=== PATIENT | female | born 1930 | race Caucasian/White ===

== ENCOUNTER 2018-01-28 17:47 | Outpatient (REF) | payer MEDICARE, OTHER | END 2018-01-29 | LOC: M LAB REF 17:47 | DX: D23.11 Other benign neoplasm of skin of right eyelid, including canthus (principal); D23.12 Other benign neoplasm of skin of left eyelid, including canthus; L82.1 Other seborrheic keratosis | CPT/HCPCS: 88304 ==

== ENCOUNTER → 2018-03-12 | Outpatient (REF) | payer MEDICARE, OTHER ==
[2018-03-12 12:55] LABS: FERRITIN 134 NG/ML (8-252); IRON (FE) 65 UG/DL (50-170); PERCENT SATURATION 21.7 % (13.2-45.0); TOTAL IRON BINDING CAPACITY 300 UG/DL (250-450)
[2018-03-12 13:02] LABS: FOLATE 14.4 NG/ML; VITAMIN B12 LEVEL 266 PG/ML
== END ==
LOC: M LAB REF 12:08
DX: D64.9 Anemia, unspecified (principal)
CPT/HCPCS: 82746

== ENCOUNTER 2019-02-22 09:40 | Inpatient (IN) | payer MEDICARE, OTHER ==
[~2019-02-22] VITALS: Ht 154.9 cm; Wt 79.5 kg
[~2019-02-22 09:40] MED LIST: AMLO10TA PO; AMLO25TA PO; ATIV1TAB10 PO; BUSP10TA PO; BUSP1TAB PO; CHLO125TA PO; COLA100C5 PO; HYDR-3910 PO; LIPI10TA PO; OMEP40CA2 PO; PROZ20CA11 PO; RAMI1CAP26 PO; SPIR-10 PO; TRAM50TA2 PO; TYLE325T5 PO; VITA200015 PO; ZIAC10TA PO; hygroton OR
[2019-02-22] MEDS ORDERED: PRED10PA PO (09:52)
[2019-02-22 11:30] LABS: BASO % 0.2 % (0.0-1.0); HEMATOCRIT 33.9 % (36.0-47.0); HEMOGLOBIN 11.2 g/dl (12.0-15.5); MEAN CORPUSCULAR HEMOGLOBIN 29.2 pg (27.0-33.0); MEAN CORPUSCULAR VOLUME 88.5 fl (80.0-96.0); MONO # 0.6 10^3/uL (0.0-0.8); MONO % 4.3 % (0.0-5.0); NEUTROPHILS # 11.2 10^3/uL (1.8-7.7); NEUTROPHILS % 86.7 % (36.0-66.0); PLATELET COUNT, AUTOMATED 340 10^3/uL (150-450); RED BLOOD COUNT 3.83 10^6/uL (4.00-5.40)
[2019-02-22 11:43] LABS: INR 0.99; PROTHROMBIN TIME 13.2 SECONDS (12.1-14.4)
[2019-02-22 11:57] LABS: INFLUENZA A AMPLIFICATION NEGATIVE (NEGATIVE); INFLUENZA B AMPLIFICATION NEGATIVE (NEGATIVE)
[2019-02-22 13:38] LABS: ALBUMIN 3.8 GM/DL (3.2-5.2); ALT/SGPT 17 U/L (12-78); BILIRUBIN,DIRECT < 0.1 MG/DL (0.0-0.2); BILIRUBIN,TOTAL 0.3 MG/DL (0.2-1.0); BLOOD UREA NITROGEN 29 MG/DL (7-18); CALCIUM LEVEL 9.4 MG/DL (8.8-10.2); CARBON DIOXIDE LEVEL 24 MEQ/L (21-32); CHLORIDE LEVEL 109 MEQ/L (98-107); CPK CREATINE PHOSPHOKINASE 48 U/L (26-192); CREATININE FOR GFR 1.17 MG/DL (0.55-1.30); GLOMERULAR FILTRATION RATE 46.7 (>32); GLUCOSE, FASTING 102 MG/DL (70-100); MB/CK RELATIVE INDEX 2.08 (< OR =4); NT-PRO BNP 495 PG/ML (<450); POTASSIUM SERUM 4.9 MEQ/L (3.5-5.1); SODIUM LEVEL 139 MEQ/L (136-145); THYROXINE (T4) 8.3 UG/DL (4.5-12.0); TOTAL PROTEIN 7.2 GM/DL (6.4-8.2); TROPONIN I < 0.02 NG/ML (< 0.10)
[2019-02-22] MEDS ORDERED: ISOVUE-370 76% 100ML VIAL (Q9967) As Ordered ONE (13:50)
[2019-02-22] MEDS ORDERED: LIDO1PAD TD (16:08)
[2019-02-22] MEDS ORDERED: DOCU100C17 PO (16:08)
[2019-02-22] MEDS ORDERED: ATOR1TAB21 PO (16:08)
[2019-02-22] MEDS ORDERED: PRED10TA2 PO (16:08)
[2019-02-22] MEDS ORDERED: BUSP10TA PO (16:08)
[2019-02-22] MEDS ORDERED: FLUO20CA8 PO (16:08)
[2019-02-22] MEDS ORDERED: VITA-145 PO (16:08)
[2019-02-22] MEDS ORDERED: MIRA3350 PO (16:08)
[2019-02-22] MEDS ORDERED: CHLO25TA PO (16:08)
[2019-02-22] MEDS ORDERED: NON-325T5 PO (16:10)
[2019-02-22] MEDS ORDERED: ACETAMINOPHEN 325 MG TAB PO PRN (16:15)
[2019-02-22] MEDS ORDERED: MIRALAX *UNIT DOSE* 17GM PACKET PO PRN (16:15)
--- NOTE | 2019-02-22 16:26 | HPEPDOC ---
[facility] Medical History & Physical Date of Admission Feb 22, 2019 History and Physical CHIEF COMPLAINT: SHORTNESS OF BREATH HISTORY OF PRESENT ILLNESS: 88 yo female presents for several day history of worsening shortness of breath, bilateral leg pain, dizziness and difficulty with walking. She did seek medical attention, and was prescribed steroid therapy with x-rays of her legs which she states were negative for fractures. She states she typically is short of breath, which has been attributed to anxiety. However her shortness of breath was much worse over the past week. She states she typically is somewhat active. She denies chest pain or long trips. States she does also follow with a director of laboratory operations for her shortness of breath, and had a cardiac cath two years ago which was negative. Her last colonoscopy was 2-3 years ago, and was normal as per patient. Denies smoking history, states her father was a heavy smoker who she grew up with. PAST MEDICAL HISTORY: 1. HTN 2. DLP 3. Anxiety PAST SURGICAL HISTORY: Patient denies. ALLERGIES: Please see below. REVIEW OF SYSTEMS: Negative except as per HPI. HOME MEDICATIONS: Please see below. PHYSICAL EXAMINATION: VSS General: elderly, lying comfortably in bed, family at bedside HEENT: NC/AT, EOMI, PERRL Lungs: CTA B/L Heart: +S1S2, RRR Abd: soft, NT, +BS Ext: trace peripheral edema, + b/l calf tenderness LABORATORY DATA: See below. MICROBIOLOGY: Please see below. ASSESSMENT: 88 yo female for multiple pulmonary emboli. #PE - start xarelto - takes same medication - coagulopathy w/u - up to date with colonoscopy as per patient - echocardiogram #SOB - possibly secondary to PE complicated with anxiety #anxiety - continue home regimen - buspar, prozac, ativan as needed #HTN - continue home regimen - norvasc, chlorthalidone, aldactone #DLP - lipitor #DVT prophylaxis - as per above - Xarelto Vital Signs Vital Signs Date Time Temp Pulse Resp B/P (MAP) Pulse Ox O2 Delivery O2 Flow Rate FiO2 02/22/19 14:47 98.2 67 18 149/65 (93) 100 Room Air Laboratory Data Labs 24H Laboratory Tests 2 02/22/19 11:19: Immature Granulocyte % (Auto) 0.8, White Blood Count 13.0H, Red Blood Count 3.83L, Hemoglobin 11.2L, Hematocrit 33.9L, Mean Corpuscular Volume 88.5, Mean Corpuscular Hemoglobin 29.2, Mean Corpuscular Hemoglobin Concent 33.0, Red Cell Distribution Width 13.1, Platelet Count 340, Neutrophils (%) (Auto) 86.7H, Lymphocytes (%) (Auto) 8.0L, Monocytes (%) (Auto) 4.3, Eosinophils (%) (Auto) 0.0, Basophils (%) (Auto) 0.2, Neutrophils # (Auto) 11.2H, Lymphocytes # (Auto) 1.0L, Monocytes # (Auto) 0.6, Eosinophils # (Auto) 0.0, Basophils # (Auto) 0.0, Nucleated Red Blood Cells % (auto) 0.0, Prothrombin Time 13.2, Prothromb Time International Ratio 0.99, Lactic Acid Level 1.2, Influenza Type A (RT-PCR) NEGATIVE, Influenza Type B (RT-PCR) NEGATIVE 02/22/19 12:53: Anion Gap 6L, Glomerular Filtration Rate 46.7, Calcium Level 9.4, Aspartate Amino Transf (AST/SGOT) 9, Alanine Aminotransferase (ALT/SGPT) 17, Alkaline Phosphatase 53, Total Bilirubin 0.3, Direct Bilirubin < 0.1, Total Creatine Kinase 48, Creatine Kinase MB 1.0, Creatine Kinase MB Relative Index 2.08, Troponin I < 0.02, VO-Frd-G-Type Natriuretic Peptide 495H, Total Protein 7.2, Albumin 3.8, Albumin/Globulin Ratio 1.12, Thyroid Stimulating Hormone (TSH) 1.070, Thyroxine (T4) 8.3 CBC/BMP Laboratory Tests 02/22/19 11:19 Red Blood Count 3.83 L, Mean Corpuscular Volume 88.5, Mean Corpuscular Hemoglobin 29.2, Mean Corpuscular Hemoglobin Concent 33.0, Red Cell Distribution Width 13.1, Neutrophils (%) (Auto) 86.7 H, Lymphocytes (%) (Auto) 8.0 L, Monocytes (%) (Auto) 4.3, Eosinophils (%) (Auto) 0.0, Basophils (%) (Auto) 0.2, Neutrophils # (Auto) 11.2 H, Lymphocytes # (Auto) 1.0 L, Monocytes # (Auto) 0.6, Eosinophils # (Auto) 0.0, Basophils # (Auto) 0.0 02/22/19 12:53 Microbiology Microbiology 02/22/19 Blood Culture, Received Pending 02/22/19 Blood Culture, Received Pending Home Medications Scheduled Amlodipine Besylate (Norvasc) 10 Mg Tab, 10 MG PO DAILY Atorvastatin Calcium (Atorvastatin Calcium) 20 Mg Tablet, 10 MG PO QHS Buspirone HCl (Buspirone HCl) 10 Mg Tablet, 20 MG PO BID Chlorthalidone (Chlorthalidone) 25 Mg Tablet, 25 MG PO DAILY Cholecalciferol (Vitamin D3) (Vitamin D3) 1,000 Unit Tablet, 2,000 UNIT PO DAILY Docusate Sodium (Docusate Sodium) 100 Mg Capsule, 100 MG PO BID Fluoxetine Hcl (Fluoxetine HCl) 20 Mg Capsule, 20 MG PO BID Omeprazole (Omeprazole) 40 Mg Cap, 40 MG PO DAILY Prednisone (Prednisone) 10 Mg Tablet, 10 MG PO TID STARTED 02/21/19 X 4 DAYS TOTAL Spironolactone (Spironolactone) 25 Mg Tab, 25 MG PO DAILY Scheduled PRN Acetaminophen (Acetaminophen) 325 Mg Tablet, 650 MG PO Q4H PRN for PAIN Lidocaine (Lidocaine) 1 Each Adh..patch, 5 % TD DAILY PRN for PAIN APPLY TO NECK Lorazepam (Ativan) 0.5 Mg Tab, 0.5 MG PO TID PRN for ANXIETY Polyethylene Glycol 3350 (Miralax) 119 Gm Powder, 17 GM PO DAILY PRN for CONSTIPATION Allergies Coded Allergies: Penicillins (Verified Allergy, Intermediate, SWELLING, 02/22/19) SU HONEYCUTT MD Feb 22, 2019 16:26
[2019-02-22] MEDS: predniSONE 10 MG TAB PO SCH ×2 (16:55→21:31)
[2019-02-22] MEDS: RIVAROXABAN 15 MG TAB (XARELTO) PO SCH (18:01)
[2019-02-22] MEDS: LORazepam 0.5 MG TAB PO PRN (18:29)
[2019-02-22] MEDS: FLUoxetine 20 MG CAP PO SCH (21:31)
[2019-02-22] MEDS: ATORVASTATIN 10 MG TAB PO SCH (21:31)
[2019-02-22] MEDS: busPIRone 10 MG TAB PO SCH (21:32)
[2019-02-23] MEDS: LORazepam 0.5 MG TAB PO PRN ×2 (02:36→20:39)
[2019-02-23 07:23] LABS: HEMOGLOBIN 10.2 g/dl (12.0-15.5); MEAN CORPUSCULAR HEMOGLOBIN 29.5 pg (27.0-33.0); MEAN CORPUSCULAR HGB CONC 32.9 g/dl (32.0-36.5); MEAN CORPUSCULAR VOLUME 89.6 fl (80.0-96.0); PLATELET COUNT, AUTOMATED 276 10^3/uL (150-450); RED BLOOD COUNT 3.46 10^6/uL (4.00-5.40); WHITE BLOOD COUNT 9.3 10^3/uL (4.0-10.0)
[2019-02-23 07:35] LABS: CALCIUM LEVEL 9.2 MG/DL (8.8-10.2); CREATININE FOR GFR 1.23 MG/DL (0.55-1.30); GLOMERULAR FILTRATION RATE 44.1 (>32); POTASSIUM SERUM 5.1 MEQ/L (3.5-5.1)
[2019-02-23] MEDS: busPIRone 10 MG TAB PO SCH ×2 (08:16→21:33)
[2019-02-23] MEDS: predniSONE 10 MG TAB PO SCH (08:16)
[2019-02-23] MEDS: OMEPRAZOLE 20 MG CAP PO SCH (08:16)
[2019-02-23] MEDS: SPIRONOLACTONE 25 MG TAB PO SCH (08:16)
[2019-02-23] MEDS: VITAMIN D 1,000 INTERNATIONAL UNITS TABLET PO SCH (08:17)
[2019-02-23] MEDS: amLODIPine 10 MG TAB PO SCH (08:17)
[2019-02-23] MEDS: FLUoxetine 20 MG CAP PO SCH ×2 (08:17→21:33)
[2019-02-23] MEDS: CHLORTHALIDONE 25 MG TAB PO SCH (08:17)
[2019-02-23] MEDS: RIVAROXABAN 15 MG TAB (XARELTO) PO SCH ×2 (08:30→18:04)
--- NOTE | 2019-02-23 09:12 | REP ---
Bilateral lower extremity deep vein duplex ultrasound: The deep veins demonstrate normal compression, normal Doppler color flow and normal Doppler waveforms with respiration and augmentation from the popliteal veins to the common femoral veins on the right and left. 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 Impression: There is no deep vein thrombus the right lower extremity or left lower extremity. There are bilateral popliteal fossa Zhao's cysts . Electronically Signed by Albin Aviles MD 02/22/2019 11:25 A
--- NOTE | 2019-02-23 09:12 | REP ---
PA and lateral chest: Comparison is 01/28/2016. The lung serna are clear. The cardiac size is normal. The sonia, mediastinum, and skeletal structures are unremarkable except for kyphosis, unchanged . Impression: Negative PA and lateral chest. Electronically Signed by Albin Aviles MD 02/22/2019 11:22 A
--- NOTE | 2019-02-23 09:17 | REP ---
CT of the chest with IV contrast, CT pulmonary angiography protocol: Comparisons are 02/19/2017 and 03/14/2016 . There are no emboli in the pulmonary trunk or central pulmonary arteries. The pulmonary trunk measures 3.3 cm in diameter. This is compatible with pulmonary hypertension in the appropriate clinical setting. There are emboli in the pulmonary artery to the anterior segment of the right lower lobe. No other pulmonary emboli are identified. There are no infiltrates. There are no pleural effusions. There are multiple small lung nodules bilaterally, unchanged from 08/19/2016, likely granulomas. There is no mediastinal, hilar or axillary lymph node enlargement. Thoracic aorta is unremarkable except for calcified atheroma. Cardiac size is normal. There is no pericardial effusion. The visualized upper abdominal contents are unremarkable. Impression: There are emboli in the right lower lobe anterior segment pulmonary artery branch. There are no other pulmonary emboli. There are stable small lung nodules as described, likely granulomas. Electronically Signed by Albin Aviles MD 02/22/2019 02:55 P
--- NOTE | 2019-02-23 12:54 | IPNPDOC ---
Text Note Date of Service The patient was seen on 02/23/19. NOTE Subjective: Patient seen and examined at bedside. Still complains of shortness of breath and light-headedness. Denies chest pain, headaches, N/V/D. Calf pain improved. Objective: VSS General: elderly, lying comfortably in bed, at bedside HEENT: NC/AT, EOMI, PERRL Lungs: CTA B/L Heart: +S1S2, RRR Abd: soft, NT, +BS Ext: trace peripheral edema, ASSESSMENT: 88 yo female for multiple pulmonary emboli. #PE - started xarelto - takes same medication - coagulopathy w/u - up to date with colonoscopy as per patient - echocardiogram #SOB - possibly secondary to PE complicated with anxiety #anxiety - continue home regimen - buspar, prozac, ativan as needed #HTN - continue home regimen - norvasc, chlorthalidone, aldactone #DLP - lipitor #DVT prophylaxis - as per above - Xarelto Dispo: Pending PT eval, PFS possible home care, echocardiogram VS,Mark Anthony, I+O VS, Mark Anthony, I+O Laboratory Tests 02/22/19 12:53 02/23/19 06:57 Red Blood Count 3.46 L, Mean Corpuscular Volume 89.6, Mean Corpuscular Hemoglobin 29.5, Mean Corpuscular Hemoglobin Concent 32.9, Red Cell Distribution Width 13.4, Calcium Level 9.2 Vital Signs Date Time Temp Pulse Resp B/P (MAP) Pulse Ox O2 Delivery O2 Flow Rate FiO2 02/23/19 10:57 96.7 63 20 164/72 (102) 97 Room Air SU HONEYCUTT MD Feb 23, 2019 12:54
--- NOTE | 2019-02-23 20:40 | ECGEPIP ---
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
[2019-02-23] MEDS ORDERED: predniSONE 10 MG TAB PO SCH (21:00)
[2019-02-23] MEDS: ATORVASTATIN 10 MG TAB PO SCH (21:33)
[2019-02-23 22:15] VITALS: BP 142/72
[2019-02-24 05:55] VITALS: O2SAT 98
[2019-02-24 06:00] VITALS: BP 140/70
--- NOTE | 2019-02-24 06:24 | ECHO ---
DATE OF PROCEDURE: 02/23/2019 AGE: 88 GENDER: Female HEIGHT: 61 inches WEIGHT: 175 pounds BODY SURFACE AREA: 1.78 meters squared INPATIENT: Currently in the emergency room. REFERRING PHYSICIAN: Dr. Aidan Ng INDICATION: Dyspnea. Pulmonary embolism. MEASUREMENTS 2-D Measurements: RV: 3.8 cm LV: 4.4 cm Septum: 1.0 cm Posterior wall: 1.0 cm Aortic root: 3.0 cm Proximal ascending aorta: 3.8 cm LA: 3.8 cm LVEF: 75%. Doppler Measurements: AV: 2.05 m/s LVOT: 1.13 m/s LVOT diameter: 2.0 cm Mean AV systolic gradient: 9 mmHg MV - E 124 A 159 EA ratio 0.8 Mean MV diastolic gradient: 3 mmHg PV: 1.0 m/s Pulmonary artery acceleration time: 130 ms RVSP: 37 mmHg IVC: 1.9 cm COMMENTS: Normal sinus rhythm without intraventricular conduction disturbance. Somewhat technically challenging study in light of the patient's body habitus, but diagnostically useful information was still obtained. M-mode and two-dimensional echocardiography was performed with pulsed, continuous wave, color flow and tissue Doppler studies. Normal left ventricular size and wall thickness with hyperkinetic wall motion. Borderline left atrial enlargement. Normal right heart chamber sizes and motion with Doppler evidence of mild pulmonary hypertension. Normal IVC size and collapse against an elevated central venous pressure. Aortic valvular sclerosis without stenosis or insufficiency. Moderately severe mitral annular calcification with slightly elevated mean gradient suggestive a borderline mitral stenosis. Trace mitral insufficiency. Normal appearing tricuspid valve with mild insufficiency. No apparent intracardiac mass or pericardial effusion. MTDD
[2019-02-24 07:08] LABS: HEMATOCRIT 34.6 % (36.0-47.0); HEMOGLOBIN 11.4 g/dl (12.0-15.5); MEAN CORPUSCULAR HEMOGLOBIN 29.8 pg (27.0-33.0); MEAN CORPUSCULAR HGB CONC 32.9 g/dl (32.0-36.5); MEAN CORPUSCULAR VOLUME 90.3 fl (80.0-96.0); PLATELET COUNT, AUTOMATED 297 10^3/uL (150-450); RED BLOOD COUNT 3.83 10^6/uL (4.00-5.40)
[2019-02-24 07:27] LABS: CALCIUM LEVEL 9.2 MG/DL (8.8-10.2); CREATININE FOR GFR 1.4 MG/DL (0.55-1.30); POTASSIUM SERUM 4.5 MEQ/L (3.5-5.1)
[2019-02-24] MEDS: RIVAROXABAN 15 MG TAB (XARELTO) PO SCH ×2 (08:00→17:47)
[2019-02-24] MEDS: busPIRone 10 MG TAB PO SCH ×2 (09:48→21:42)
[2019-02-24] MEDS: LORazepam 0.5 MG TAB PO PRN ×2 (09:48→17:46)
[2019-02-24] MEDS: FLUoxetine 20 MG CAP PO SCH ×2 (09:49→21:42)
[2019-02-24] MEDS: VITAMIN D 1,000 INTERNATIONAL UNITS TABLET PO SCH (09:49)
[2019-02-24] MEDS: OMEPRAZOLE 20 MG CAP PO SCH (09:49)
[2019-02-24] MEDS: SPIRONOLACTONE 25 MG TAB PO SCH (09:49)
[2019-02-24] MEDS: CHLORTHALIDONE 25 MG TAB PO SCH (09:49)
[2019-02-24] MEDS: amLODIPine 10 MG TAB PO SCH (09:49)
--- NOTE | 2019-02-24 12:28 | IPNPDOC ---
Text Note Date of Service The patient was seen on 02/24/19. NOTE Subjective: Patient seen and examined at bedside. Still complains of shortness of light- headedness. Denies chest pain, headaches, N/V/D. Calf pain improved. Objective: VSS General: elderly, lying comfortably in bed, family at bedside HEENT: NC/AT, EOMI, PERRL Lungs: CTA B/L Heart: +S1S2, RRR Abd: soft, NT, +BS Ext: trace peripheral edema, ASSESSMENT: 88 yo female for multiple pulmonary emboli. #PE - started xarelto - takes same medication - coagulopathy w/u - up to date with colonoscopy as per patient - echocardiogram #SOB - possibly secondary to PE complicated with anxiety #anxiety - continue home regimen - buspar, prozac, ativan as needed #HTN - continue home regimen - norvasc, chlorthalidone, aldactone #DLP - lipitor #elevated creatinine - check UA today - continue to follow #DVT prophylaxis - as per above - Xarelto Dispo: Pending PT clearance, PFS possible home care, follow creatinine/UA VS,Fishbone, I+O VS, Fishbone, I+O Laboratory Tests 02/24/19 06:40 Red Blood Count 3.83 L, Mean Corpuscular Volume 90.3, Mean Corpuscular Hemoglobin 29.8, Mean Corpuscular Hemoglobin Concent 32.9, Red Cell Distribution Width 13.3, Calcium Level 9.2 Vital Signs Date Time Temp Pulse Resp B/P (MAP) Pulse Ox O2 Delivery O2 Flow Rate FiO2 02/24/19 09:49 68 143/65 02/24/19 06:00 97.8 18 98 02/24/19 05:55 Room Air I&O- Last 24 Hours up to 6 AM 02/24/19 06:00 Intake Total 0 ml Output Total 800 ml Balance -800 ml SU HONEYCUTT MD Feb 24, 2019 12:28
[2019-02-24 14:00] VITALS: BP 145/66
[2019-02-24] MEDS: ATORVASTATIN 10 MG TAB PO SCH (21:42)
[2019-02-24 22:00] VITALS: BP 162/58
[2019-02-25 04:38] VITALS: O2SAT 97
[2019-02-25 06:00] VITALS: BP 160/62
[2019-02-25 06:34] LABS: HEMATOCRIT 34.1 % (36.0-47.0); HEMOGLOBIN 11.1 g/dl (12.0-15.5); MEAN CORPUSCULAR HGB CONC 32.6 g/dl (32.0-36.5); PLATELET COUNT, AUTOMATED 307 10^3/uL (150-450); RED BLOOD COUNT 3.83 10^6/uL (4.00-5.40); WHITE BLOOD COUNT 8.6 10^3/uL (4.0-10.0)
[2019-02-25 06:55] LABS: CALCIUM LEVEL 9.2 MG/DL (8.8-10.2); CREATININE FOR GFR 1.36 MG/DL (0.55-1.30); GLOMERULAR FILTRATION RATE 39.2 (>32); POTASSIUM SERUM 4.5 MEQ/L (3.5-5.1)
[2019-02-25] MEDS: SPIRONOLACTONE 25 MG TAB PO SCH (08:42)
[2019-02-25] MEDS: RIVAROXABAN 15 MG TAB (XARELTO) PO SCH ×2 (08:43→18:32)
[2019-02-25] MEDS: FLUoxetine 20 MG CAP PO SCH ×2 (08:43→20:39)
[2019-02-25] MEDS: OMEPRAZOLE 20 MG CAP PO SCH (08:43)
[2019-02-25] MEDS: busPIRone 10 MG TAB PO SCH ×2 (08:43→20:38)
[2019-02-25] MEDS: VITAMIN D 1,000 INTERNATIONAL UNITS TABLET PO SCH (08:43)
[2019-02-25] MEDS: amLODIPine 10 MG TAB PO SCH (08:47)
[2019-02-25] MEDS: LORazepam 0.5 MG TAB PO PRN ×2 (08:49→20:43)
[2019-02-25] MEDS ORDERED: NS 500 ML IV ONE (09:15)
[2019-02-25] MEDS ORDERED: XARE20TA PO (10:06)
[2019-02-25] MEDS ORDERED: XARE15TA PO (10:06)
[2019-02-25 10:43] LABS: DRVV SCREEN 86.1 SEC
[2019-02-25 10:49] LABS: PTT LUPUS TYPE ANTICOAG SCREEN 2.1 (0-1.2)
[2019-02-25 10:56] LABS: DRVV CONFIRM 54.4 SEC; LUPUS CONFIRM RATIO 1.5
[2019-02-25 11:00] LABS: NORMALIZED RATIO 1.4 (0.00-1.20)
[2019-02-25 14:00] VITALS: BP 142/62
[2019-02-25 14:17] LABS: ANTINUCLEAR ANTIBODIES DIRECT Negative (Negative)
--- NOTE | 2019-02-25 15:58 | IPNPDOC ---
Text Note Date of Service The patient was seen on 02/25/19. NOTE Subjective: Patient is an 88-year-old female with a past medical history of hypertension, dyslipidemia and anxiety who presented to the ER with complaints of shortness of breath. . She had noted associated dizziness and difficulty with walking. Patient does follow with Dr. Machuca for pulmonary nodules. The emergency room, patient was found to have a pulmonary embolism and was admitted to the hospital service for further evaluation and treatment. Patient was seen and examined at the bedside. , Currently patient denies any chest pain, short of breath or palpitations. Denies any nausea, vomiting, abdominal pain, constipation, diarrhea or any urinary discomfort. Objective: Vitals (See below) General: Lying in bed, no acute distress, comfortable, AAOx3 HEENT: NC, AT CVS: RRR, +S1S2 Lungs: Fair air entry b/l, auscultation without any wheezing, rales or rhonchi Abdomen: Soft, ND, NT Extremities: - Edema, - Calf tenderness Assessment and plan: Shortness of breath - likely 2/2 pulmonary embolism - Presented to the ER with complaint of shortness of breath; clinically has had significant resolution - Remains hemodynamically stable - Will have outpatient follow-up for coagulopathy workup - Patient's screening history is up-to-date; Up to date colonoscopy - c/w Xarelto; prescription sent to pharmacy for verification Pulmonary nodules - Patient follows with Dr. Machuca; will ensure f/u within 7 days from discharge Elevation of Cr - Will hold Spironolactone and Chlorthalidone - Will start aylin IV hydration Anxiety - c/w Buspirone, Fluoxetine, Lorazepam HTN - BP well controlled - Will hold Spironolactone and Chlorthalidone - c/w Amlodipine DLP - c/w Atorvastatin DVT prophylaxis - on full anticoagulation with Xarelto Disposition: - Awaiting discharge tomorrow when renal function improves VSMark Anthony, I+O VSMark Anthony, I+O Laboratory Tests 02/25/19 06:06 Red Blood Count 3.83 L, Mean Corpuscular Volume 89.0, Mean Corpuscular Hemoglobin 29.0, Mean Corpuscular Hemoglobin Concent 32.6, Red Cell Distribution Width 13.4, Calcium Level 9.2 Vital Signs Date Time Temp Pulse Resp B/P (MAP) Pulse Ox O2 Delivery O2 Flow Rate FiO2 02/25/19 14:00 98.9 75 18 142/62 (88) 98 02/25/19 04:38 Room Air I&O- Last 24 Hours up to 6 AM 02/25/19 05:59 Intake Total 840 ml Output Total 1250 ml Balance -410 ml MODE CASTANEDA MD Feb 25, 2019 15:57
[2019-02-25 20:00] VITALS: O2SAT 99
[2019-02-25] MEDS: ATORVASTATIN 10 MG TAB PO SCH (20:39)
[2019-02-25 22:00] VITALS: BP 146/64
[2019-02-26 00:06] LABS: CARDIOLIPIN IGA ANTIBODY <9 APL U/mL (0-11); CARDIOLIPIN IGG ANTIBODY <9 GPL U/mL (0-14); CARDIOLIPIN IGM ANTIBODY 15 MPL U/mL (0-12); HOMOCYST(E)INE SERUM 17.4 umol/L (0.0-15.0)
[2019-02-26 02:00] VITALS: O2SAT 96
[2019-02-26 06:00] VITALS: BP 153/67
[2019-02-26 06:06] LABS: HEMOGLOBIN 10.5 g/dl (12.0-15.5); MEAN CORPUSCULAR HEMOGLOBIN 29.2 pg (27.0-33.0); MEAN CORPUSCULAR HGB CONC 32.8 g/dl (32.0-36.5); MEAN CORPUSCULAR VOLUME 89.1 fl (80.0-96.0); PLATELET COUNT, AUTOMATED 272 10^3/uL (150-450); RED BLOOD COUNT 3.59 10^6/uL (4.00-5.40); WHITE BLOOD COUNT 8.1 10^3/uL (4.0-10.0)
[2019-02-26 06:22] LABS: CALCIUM LEVEL 8.4 MG/DL (8.8-10.2); CREATININE FOR GFR 1.16 MG/DL (0.55-1.30); GLOMERULAR FILTRATION RATE 47.2 (>32); POTASSIUM SERUM 4.3 MEQ/L (3.5-5.1)
[2019-02-26 09:10] VITALS: BP 153/67
[2019-02-26] MEDS: VITAMIN D 1,000 INTERNATIONAL UNITS TABLET PO SCH (09:10)
[2019-02-26] MEDS: amLODIPine 10 MG TAB PO SCH (09:10)
[2019-02-26] MEDS: FLUoxetine 20 MG CAP PO SCH (09:10)
[2019-02-26] MEDS: RIVAROXABAN 15 MG TAB (XARELTO) PO SCH (09:10)
[2019-02-26] MEDS: OMEPRAZOLE 20 MG CAP PO SCH (09:10)
[2019-02-26] MEDS: busPIRone 10 MG TAB PO SCH (09:10)
--- NOTE | 2019-02-26 11:08 | DS.PDOC ---
Discharge Summary General Date of Admission Feb 22, 2019 at 15:44 Date of Discharge 02/26/2019 Discharge Summary PROCEDURES PERFORMED DURING STAY: [None]. ADMITTING DIAGNOSES / DISCHARGE DIAGNOSES: Shortness of breath - likely 2/2 pulmonary embolism Pulmonary nodules s/p Elevation of Cr Anxiety HTN DLP DVT prophylaxis COMPLICATIONS/CHIEF COMPLAINT: Shortness of breath HISTORY OF PRESENT ILLNESS: Patient is an 88-year-old female with a past medical history of hypertension, dyslipidemia and anxiety who presented to the ER with complaints of shortness of breath. . She had noted associated dizziness and difficulty with walking. Patient does follow with Dr. Machuca for pulmonary nodules. The emergency room, patient was found to have a pulmonary embolism and was admitted to the hospital service for further evaluation and treatment. HOSPITAL COURSE: Shortness of breath - likely 2/2 pulmonary embolism - Presented to the ER with complaint of shortness of breath; clinically has had significant resolution - Remains hemodynamically stable - Will have outpatient follow-up for coagulopathy workup - Patient's screening history is up-to-date; Up to date colonoscopy - c/w Xarelto; verified that coverage will be provided by insurance Pulmonary nodules - Patient follows with Dr. Machuca; will ensure f/u within 7 days from discharge s/p Elevation of Cr - Will hold Spironolactone and Chlorthalidone - s/p aylin IV hydration Anxiety - c/w Buspirone, Fluoxetine, Lorazepam HTN - BP well controlled - Will resume Spironolactone and Chlorthalidone on discharge - c/w Amlodipine DLP - c/w Atorvastatin DVT prophylaxis - on full anticoagulation with Xarelto DISCHARGE MEDICATIONS: Please see below. ALLERGIES: Please see below. PHYSICAL EXAMINATION ON DISCHARGE: Vitals (See below) General: Lying in bed, no acute distress, comfortable, AAOx3 HEENT: NC, AT CVS: RRR, +S1S2 Lungs: Fair air entry b/l, auscultation without any wheezing, rales or rhonchi Abdomen: Soft, non-distended without tenderness Extremities: No evidence of edema, - Calf tenderness LABORATORY DATA: Please see below. ACTIVITY: [As tolerated]. DISCHARGE PLAN: Follow up with Dr. Donal Wesley and Dr. Machuca within 7 days. Remain compliant with treatment plan and medications Return to the ER if you experience any problems DISPOSITION: Home, Self-Care. DISCHARGE CONDITION: [Stable]. TIME SPENT ON DISCHARGE: Greater than [35] minutes. Vital Signs/I&Os Vital Signs Date Time Temp Pulse Resp B/P (MAP) Pulse Ox O2 Delivery O2 Flow Rate FiO2 02/26/19 09:10 78 153/67 02/26/19 06:00 98.7 18 98 02/26/19 02:00 Room Air I&O- Last 24 Hours up to 6 AM 02/26/19 06:00 Intake Total 1620 ml Output Total 1250 ml Balance 370 ml Laboratory Data Labs 24H Laboratory Tests 2 02/26/19 05:40: Nucleated Red Blood Cells % (auto) 0.0, Anion Gap 7L, Glomerular Filtration Rate 47.2, Blood Urea Nitrogen 35H, Creatinine 1.16, Sodium Level 140, Potassium Level 4.3, Chloride Level 109H, Carbon Dioxide Level 24, Calcium Level 8.4L CBC/BMP Laboratory Tests 02/26/19 05:40 Red Blood Count 3.59 L, Mean Corpuscular Volume 89.1, Mean Corpuscular Hemoglobin 29.2, Mean Corpuscular Hemoglobin Concent 32.8, Red Cell Distribution Width 13.2, Calcium Level 8.4 L Microbiology Microbiology 02/22/19 Blood Culture - Preliminary, Resulted No Growth after 72 hours. All specime... 02/22/19 Blood Culture - Preliminary, Resulted No Growth after 72 hours. All specime... 02/24/19 Urine Culture - Preliminary, Resulted Strep Agalactiae Group B Discharge Medications Scheduled Amlodipine Besylate (Norvasc) 10 Mg Tab, 10 MG PO DAILY, (Reported) Atorvastatin Calcium (Atorvastatin Calcium) 20 Mg Tablet, 10 MG PO QHS, (Reported) Buspirone HCl (Buspirone HCl) 10 Mg Tablet, 20 MG PO BID, (Reported) Chlorthalidone (Chlorthalidone) 25 Mg Tablet, 25 MG PO DAILY, (Reported) Cholecalciferol (Vitamin D3) (Vitamin D3) 1,000 Unit Tablet, 2,000 UNIT PO DAILY, (Reported) Docusate Sodium (Docusate Sodium) 100 Mg Capsule, 100 MG PO BID, (Reported) Fluoxetine Hcl (Fluoxetine HCl) 20 Mg Capsule, 20 MG PO BID, (Reported) Omeprazole (Omeprazole) 40 Mg Cap, 40 MG PO DAILY, (Reported) Rivaroxaban (Xarelto) 15 Mg Tablet, 15 MG PO BID Rivaroxaban (Xarelto) 20 Mg Tablet, 20 MG PO DAILY with food Spironolactone (Spironolactone) 25 Mg Tab, 25 MG PO DAILY, (Reported) Scheduled PRN Acetaminophen (Acetaminophen) 325 Mg Tablet, 650 MG PO Q4H PRN for PAIN, (Reported) Lidocaine (Lidocaine) 1 Each Adh..patch, 5 % TD DAILY PRN for PAIN, (Reported) APPLY TO NECK Lorazepam (Ativan) 0.5 Mg Tab, 0.5 MG PO TID PRN for ANXIETY, (Reported) Polyethylene Glycol 3350 (Miralax) 119 Gm Powder, 17 GM PO DAILY PRN for CONSTIPATION, (Reported) Allergies Coded Allergies: Penicillins (Verified Allergy, Intermediate, SWELLING, 02/22/19) MODE CASTANEDA MD Feb 26, 2019 11:08
[2019-02-26 14:11] LABS: ANTI THROMBIN 3 ANTIGEN IMMUNO 123 % (72-124); ANTI THROMBIN 3 FUNCT ACTIVITY 135 % (75-135); PROTEIN C ANTIGEN 174 % (60-150); PROTEIN S ANTIGEN FREE 127 % (57-157); PROTEIN S ANTIGEN TOTAL 136 % (60-150)
[2019-02-27 14:12] LABS: HEXAGONAL PHASE PHOSPHOLIPID 4 sec (0-11)
== END 2019-02-26 09:48 | disposition home or self-care (01) | DRG 176 ==
LOC: M ED 09:40 → M ED INP 15:44 → M MSPAV 02-23 22:14
PROVIDERS: ADMIT Internal Medicine; ATTEND Internal Medicine
DX: I26.99 Other pulmonary embolism without acute cor pulmonale (principal); F41.9 Anxiety disorder, unspecified; I10 Essential (primary) hypertension; E78.5 Hyperlipidemia, unspecified; R91.8 Other nonspecific abnormal finding of lung field; Z79.899 Other long term (current) drug therapy; Z88.0 Allergy status to penicillin

== ENCOUNTER 2019-04-08 08:04 | Emergency (ER) | payer MEDICARE, OTHER ==
[~2019-04-08] VITALS: Ht 154.9 cm; Wt 78.5 kg
[~2019-04-08 08:04] MED LIST changes: +ATOR1TAB21 PO; +CHLO25TA PO; +DOCU100C17 PO; +FLUO20CA8 PO; +LIDO1PAD TD; +MIRA3350 PO; +NON-325T5 PO; +PRED10PA PO; +PRED10TA2 PO; +VITA-145 PO; +XARE15TA PO; +XARE20TA PO
[2019-04-08 09:00] VITALS: BP 130/88
--- NOTE | 2019-04-08 10:19 | REP ---
CHEST, TWO VIEWS: Two views of the chest are performed and compared to a prior study of 02/22/2019. There is no acute infiltrate. Heart is normal in size. There is calcification and tortuosity of the thoracic aorta. The mediastinal silhouette is unchanged. There are degenerative changes of the spine. IMPRESSION: No acute infiltrate. Electronically Signed by Albin Medrano MD 04/08/2019 12:34 P
== END 2019-04-08 09:06 | disposition home or self-care (01) ==
LOC: M ED 08:04
DX: H66.93 Otitis media, unspecified, bilateral (principal); H72.91 Unspecified perforation of tympanic membrane, right ear; J06.9 Acute upper respiratory infection, unspecified; E11.9 Type 2 diabetes mellitus without complications; I10 Essential (primary) hypertension; F41.9 Anxiety disorder, unspecified; E78.9 Disorder of lipoprotein metabolism, unspecified; Z86.711 Personal history of pulmonary embolism; Z85.3 Personal history of malignant neoplasm of breast; Z92.3 Personal history of irradiation; Z88.0 Allergy status to penicillin; Z79.899 Other long term (current) drug therapy; Z79.01 Long term (current) use of anticoagulants

== ENCOUNTER → 2019-05-19 | Outpatient (CLI) | payer MEDICARE, OTHER ==
[~2019-05-19] MED LIST changes: +CARA1TAB6 PO; +FLUO20CA20 PO; -FLUO20CA8 PO; +LIPI20TA PO; +MULTCAP PO; -OMEP40CA2 PO; +OMEP40CA97 PO
[2019-05-19 12:33] LABS: HEMATOCRIT 29.8 % (36.0-47.0); HEMOGLOBIN 9.6 g/dl (12.0-15.5); MEAN CORPUSCULAR HEMOGLOBIN 29.5 pg (27.0-33.0); MEAN CORPUSCULAR HGB CONC 32.2 g/dl (32.0-36.5); MEAN CORPUSCULAR VOLUME 91.7 fl (80.0-96.0); PLATELET COUNT, AUTOMATED 278 10^3/uL (150-450); RED BLOOD COUNT 3.25 10^6/uL (4.00-5.40); WHITE BLOOD COUNT 6.3 10^3/uL (4.0-10.0)
== END ==
LOC: M WUC 09:11
PROVIDERS: ATTEND Internal Medicine Cardiovascular Disease
DX: D64.9 Anemia, unspecified (principal)

== ENCOUNTER 2019-05-24 07:54 | Emergency (ER) | payer MEDICARE, OTHER ==
[~2019-05-24 07:54] MED LIST changes: -CARA1TAB6 PO; -FLUO20CA20 PO; +FLUO20CA8 PO; -LIPI20TA PO; -MULTCAP PO; +OMEP40CA2 PO; -OMEP40CA97 PO
[2019-05-24 08:25] LABS: BASO % 0.2 % (0.0-1.0); EOS # 0.1 10^3/uL (0.0-0.50); EOS % 2.6 % (0.0-3.0); HEMATOCRIT 31.2 % (36.0-47.0); HEMOGLOBIN 10.2 g/dl (12.0-15.5); LYMPH # 0.9 10^3/uL (1.5-4.5); LYMPH % 18.1 % (24.0-44.0); MEAN CORPUSCULAR HEMOGLOBIN 29.9 pg (27.0-33.0); MEAN CORPUSCULAR HGB CONC 32.7 g/dl (32.0-36.5); MEAN CORPUSCULAR VOLUME 91.5 fl (80.0-96.0); MONO # 0.4 10^3/uL (0.0-0.8); MONO % 8.5 % (0.0-5.0); NEUTROPHILS # 3.3 10^3/uL (1.8-7.7); NEUTROPHILS % 70.2 % (36.0-66.0); PLATELET COUNT, AUTOMATED 259 10^3/uL (150-450); RED BLOOD COUNT 3.41 10^6/uL (4.00-5.40); WHITE BLOOD COUNT 4.7 10^3/uL (4.0-10.0)
[2019-05-24 08:43] LABS: INR 1.55; PROTHROMBIN TIME 18.3 SECONDS (11.8-14.0)
[2019-05-24 08:53] LABS: ALBUMIN 3.5 GM/DL (3.2-5.2); ALT/SGPT 21 U/L (12-78); BILIRUBIN,DIRECT < 0.1 MG/DL (0.0-0.2); BILIRUBIN,TOTAL 0.3 MG/DL (0.2-1.0); BLOOD UREA NITROGEN 27 MG/DL (7-18); CALCIUM LEVEL 9.3 MG/DL (8.8-10.2); CARBON DIOXIDE LEVEL 23 MEQ/L (21-32); CHLORIDE LEVEL 110 MEQ/L (98-107); CK-MB VALUE MASS 1.1 NG/ML (<3.6); CPK CREATINE PHOSPHOKINASE 86 U/L (26-192); CREATININE FOR GFR 1.28 MG/DL (0.55-1.30); GLUCOSE, FASTING 141 MG/DL (70-100); MB/CK RELATIVE INDEX 1.28 (< OR =4); POTASSIUM SERUM 3.9 MEQ/L (3.5-5.1); SODIUM LEVEL 140 MEQ/L (136-145); TOTAL PROTEIN 6.8 GM/DL (6.4-8.2); TROPONIN I < 0.02 NG/ML (< 0.10)
[2019-05-24] MEDS ORDERED: ISOVUE-370 76% 100ML VIAL (Q9967) As Ordered ONE (09:12)
[2019-05-24 09:39] LABS: NT-PRO BNP 201 PG/ML (<450)
--- NOTE | 2019-05-24 10:08 | REP ---
CHEST, SINGLE VIEW: Single view of the chest is performed. There is no acute infiltrate. The heart is not enlarged. There is calcification of the thoracic aorta. IMPRESSION: No acute infiltrate. Electronically Signed by Albin Medrano MD 05/25/2019 09:18 P
[2019-05-24] MEDS ORDERED: CARA1TAB6 PO (10:13)
[2019-05-24 10:15] VITALS: BP 134/63
--- NOTE | 2019-05-24 10:53 | REP ---
CT ANGIOGRAM CHEST: TECHNIQUE: Axial contrast enhanced images from the thoracic inlet to the upper abdomen using 100 mL Isovue 370 intravenous contrast material with multiplanar reformations. No pulmonary emboli are seen. There is no thoracic aortic aneurysm or dissection. Aberrant right subclavian artery is noted. The heart is slightly enlarged. No axillary, mediastinal or hilar adenopathy is seen. No pericardial effusion is seen. There is a tiny right pleural effusion. Stable subcentimeter nodule is seen in the right lower lobe and left lower lobe unchanged since 02/22/2019 exam. Otherwise, there is mild scattered interstitial fibrotic change with no definite acute infiltrate. Small gallstones are seen in the gallbladder. There are bilateral renal cysts. There are degenerative changes of the spine. IMPRESSION: No pulmonary emboli visualized. Tiny right effusion. No other acute finding. Electronically Signed by Albin Medrano MD 05/25/2019 09:19 P
--- NOTE | 2019-05-24 19:15 | ECGEPIP ---
[facility] - ED Test Date: 2019-05-24 Pat Name: MARIELY SAN Department: Room: - Gender: Female Pearl Peller: : 1930 Requested By: CONSTANTINE Vicente Order Number: [id number] Reading MD: Grecia Colon Measurements Intervals [place] Rate: 69 P: 19 VA: 130 QRS: 24 QRSD: 85 T: 38 QT: 403 QTc: 433 Interpretive Statements SINUS RHYTHM SHORT VA INTERVAL NONSPECIFIC ST T WAVE CHANGES CW 02/22/19 RATE INCREASED STEVIE;AR Electronically Signed on 05-24-2019 19:15:24 EDT by Grecia Colon
== END 2019-05-24 10:35 | disposition home or self-care (01) ==
LOC: M ED 07:54
DX: R06.00 Dyspnea, unspecified (principal); R09.1 Pleurisy; E11.9 Type 2 diabetes mellitus without complications; I10 Essential (primary) hypertension; G21.9 Secondary parkinsonism, unspecified; N39.0 Urinary tract infection, site not specified; Z79.899 Other long term (current) drug therapy; Z88.0 Allergy status to penicillin
CPT/HCPCS: 71045; 71275; 80048; 80076; 82550; 82553; 83880; 84484; 85025; 85610; 93005; 93041; 94760; 99285; Q9967

== ENCOUNTER → 2019-05-30 | Outpatient (CLI) | payer MEDICARE, OTHER ==
[~2019-05-30] MED LIST changes: +CARA1TAB6 PO
[2019-05-30 14:05] LABS: PERCENT SATURATION 20.6 % (13.2-45.0)
[2019-05-30 14:10] LABS: FOLATE 19.7 NG/ML (>5.4)
== END ==
LOC: M WUC 09:12
PROVIDERS: ATTEND Internal Medicine Cardiovascular Disease
DX: D64.9 Anemia, unspecified (principal)

== ENCOUNTER → 2019-06-17 | Outpatient (REF) | payer MEDICARE, OTHER ==
[2019-06-17 13:28] LABS: APPEARANCE, URINE CLOUDY (CLEAR); BACTERIA, URINE AUTO NEGATIVE (NEGATIVE); BILIRUBIN, URINE AUTO NEGATIVE (NEGATIVE); BLOOD, URINE BLOOD 3+ (NEGATIVE); COLOR, URINE YELLOW (YELLOW); GLUCOSE, URINE (UA) AUTO NEGATIVE (NEGATIVE); KETONE, URINE AUTO NEGATIVE (NEGATIVE); LEUKOCYTE ESTERASE, URINE AUTO NEGATIVE (NEGATIVE); NITRITE, URINE AUTO NEGATIVE (NEGATIVE); PROTEIN, URINE AUTO NEGATIVE (NEGATIVE); RBC, URINE AUTO TNTC /HPF (0-3); SPECIFIC GRAVITY URINE AUTO 1.012 (1.002-1.035); SQUAMOUS EPITHELIAL CELL UR AU 1 /HPF (0-6); UROBILINOGEN, URINE AUTO 0.2 mg/dL (0.0-2.0); WBC, URINE AUTO 11 /HPF (0-3)
== END ==
LOC: M LAB REF 12:36
PROVIDERS: ATTEND Nurse Practitioner Family
DX: N39.0 Urinary tract infection, site not specified (principal)

== ENCOUNTER → 2019-07-08 | Outpatient (REF) | payer MEDICARE, OTHER ==
[~2019-07-08] MED LIST changes: +LIPI20TA PO; +MULTCAP PO
== END ==
LOC: M LAB REF 13:45
PROVIDERS: ATTEND Nurse Practitioner Family
DX: R31.0 Gross hematuria (principal)

== ENCOUNTER 2019-07-24 06:41 | Day surgery (SDC) | payer MEDICARE, OTHER ==
[~2019-07-24] VITALS: Ht 154.9 cm; Wt 78.5 kg
[2019-07-24] MEDS: NS 1,000 ML IV ONE (07:00)
--- NOTE | 2019-07-24 08:30 | ROOR ---
Patient Name: Ute Bustos Procedure Date: 07/24/2019 8:18 AM Date of : 1930 Age: 89 Room: [facility] Gender: Female Note Status: Finalized Procedure: Upper GI endoscopy Indications: Dysphagia Providers: Peterson Newman Jr, MD Referring MD: Sophie BOOTH MD Requesting Provider: Medicines: Propofol per Anesthesia Complications: No immediate complications. Procedure: Pre-Anesthesia Assessment: - Prior to the procedure, a History and Physical was performed, and patient medications and allergies were reviewed. The patient is competent. The risks and benefits of the procedure and the sedation options and risks were discussed with the patient. All questions were answered and informed consent was obtained. Patient identification and proposed procedure were verified by the physician and the nurse in the pre-procedure area and in the procedure room. Mental Status Examination: alert and oriented. Airway Examination: normal oropharyngeal airway and neck mobility. Respiratory Examination: clear to auscultation. CV Examination: normal. ASA Grade Assessment: II - A patient with mild systemic disease. After reviewing the risks and benefits, the patient was deemed in satisfactory condition to undergo the procedure. The anesthesia plan was to use moderate sedation / analgesia (conscious sedation). Immediately prior to administration of medications, the patient was re-assessed for adequacy to receive sedatives. The heart rate, respiratory rate, oxygen saturations, blood pressure, adequacy of pulmonary ventilation, and response to care were monitored throughout the procedure. The physical status of the patient was re-assessed after the procedure. The Endoscope was introduced through the mouth, and advanced to the second part of duodenum. The upper GI endoscopy was accomplished without difficulty. The patient tolerated the procedure well. Findings: The upper third of the esophagus, middle third of the esophagus and lower third of the esophagus were normal. The cardia, gastric fundus, gastric body, gastric antrum and prepyloric region of the stomach were normal. The duodenal bulb, first portion of the duodenum and second portion of the duodenum were normal. Impression: - Normal upper third of esophagus, middle third of esophagus and lower third of esophagus. - Normal cardia, gastric fundus, gastric body, antrum and prepyloric region of the stomach. - Normal duodenal bulb, first portion of the duodenum and second portion of the duodenum. - No specimens collected. Recommendation: - Discharge patient to home (ambulatory). - Return to my office as previously scheduled. Peterson Newman MD Peterson Newman Jr, MD 07/24/2019 8:29:27 AM Electronically signed by Peterson Newman Jr, MD Number of Addenda: 0 Note Initiated On: 07/24/2019 8:18 AM Estimated Blood Loss: Estimated blood loss: none.
[2019-07-24] MEDS ORDERED: fentaNYL 100 MCG/2 ML INJECTION (J3010) As Ordered ONE (08:33)
[2019-07-24] MEDS ORDERED: LIDOCAINE 2% INJ 100 MG/5 ML SDV (FOR ANES.) As Ordered ONE (08:33)
[2019-07-24] MEDS ORDERED: PROPOFOL 500 MG/50 ML VIAL As Ordered ONE (08:33)
[2019-07-24] MEDS ORDERED: E-Z-PAQUE 96% w/w SUSP 176GM BTL As Ordered ONE (08:45)
[2019-07-24] MEDS ORDERED: E-Z-HD 98% w/w 340GM SUSP BTL As Ordered ONE (08:45)
[2019-07-24] MEDS ORDERED: E-Z-GAS II EFFERVESCENT PACKET (SODIUM BICARB./CITRIC ACID/SIMETHICONE) As Ordered ONE (08:45)
[2019-07-24 08:50] VITALS: BP 161/70
--- NOTE | 2019-07-24 16:38 | REP ---
Esophagram The procedure was performed under the direct supervision of Dr. Medrano. The images were reviewed with Dr. Medrano. A single view PA chest x-ray is submitted as a football scout film. There is no change compared to a previous chest x-ray performed on 04/08/2019. The procedure was performed after the patient was discharged from recovery after her EGD. Liquid barium and gas producing granules were given in the erect position as well as liquid barium in the prone oblique positions in order to perform a double contrast esophagram examination. The oral and pharyngeal stages of deglutition are unremarkable. There is cricopharyngeal hypertrophy. Esophageal transport is prompt and efficient and there is no esophagitis, stricture or mucosal ring. There is a small sliding-type hiatal hernia. Gastroesophageal reflux is not demonstrated on this examination. During the examination the patient did experience some dizziness. A set of vital signs were performed immediately after the procedure by the Department nurse. Her blood pressure was 157/64. Her O2 saturations were 99%. Heart rate was 65. Her last set of vital signs in recovery were as follows: Blood pressure 161/70 her O2 saturations were 98%. Her pulse was 62. Impression: 1. Cricopharyngeal hypertrophy. 2. There is a small sliding-type hiatal hernia. 0.7 minutes of fluoro time was utilized for this procedure. Electronically Signed by KEITH Stacy 07/24/2019 03:56 P Electronically Signed by Albin Medrano MD 07/24/2019 04:28 P
== END 2019-07-24 09:04 | disposition home or self-care (01) ==
LOC: M OPP 06:41
PROVIDERS: ATTEND Surgery
DX: K21.9 Gastro-esophageal reflux disease without esophagitis (principal); R13.10 Dysphagia, unspecified; Z79.899 Other long term (current) drug therapy; Z85.3 Personal history of malignant neoplasm of breast; Z92.3 Personal history of irradiation
CPT/HCPCS: 43235; 74220; J3010

== ENCOUNTER → 2019-10-16 | Outpatient (REF) | payer MEDICARE, OTHER ==
[~2019-10-16] MED LIST changes: +FLUO20CA20 PO; -FLUO20CA8 PO; -OMEP40CA2 PO; +OMEP40CA97 PO
[2019-10-17 13:51] LABS: PERCENT SATURATION 27.7 % (13.2-45.0)
[2019-10-17 14:15] LABS: FOLATE 16.7 NG/ML
== END ==
LOC: M LAB REF 12:19
PROVIDERS: ATTEND Internal Medicine
DX: D64.9 Anemia, unspecified (principal)

== ENCOUNTER → 2020-01-23 | Outpatient (REF) | payer MEDICARE, OTHER | LOC: M LAB REF 16:56 | PROVIDERS: ATTEND Internal Medicine | DX: D64.9 Anemia, unspecified (principal) ==

== ENCOUNTER 2021-02-25 20:26 | Observation (INO) | payer MEDICARE, OTHER ==
[~2021-02-25] VITALS: Ht 154.9 cm; Wt 82.5 kg
[~2021-02-25 20:26] MED LIST changes: +ACET32TAB PO; -NON-325T5 PO
[2021-02-25] MEDS ORDERED: NS 1,000 ML IV ONE (20:45)
[2021-02-25 21:04] LABS: HEMATOCRIT 33.8 % (36.0-47.0); HEMOGLOBIN 10.9 g/dl (12.0-15.5); MEAN CORPUSCULAR HEMOGLOBIN 30.4 pg (27.0-33.0); MEAN CORPUSCULAR HGB CONC 32.2 g/dl (32.0-36.5); MEAN CORPUSCULAR VOLUME 94.2 fl (80.0-96.0); PLATELET COUNT, AUTOMATED 259 10^3/uL (150-450); RED BLOOD COUNT 3.59 10^6/uL (4.00-5.40); WHITE BLOOD COUNT 10.9 10^3/uL (4.0-10.0)
[2021-02-25 21:15] LABS: INR 1.55
[2021-02-25 21:16] LABS: PARTIAL THROMBOPLASTIN TIME 30.3 SECONDS (24.2-38.5)
[2021-02-25] MEDS ORDERED: XARE15TA PO (21:22)
[2021-02-25 21:33] LABS: LYMPHOCYTES 12 % (16-44); MONOCYTES 7 % (0-5)
[2021-02-25 21:34] LABS: NEUTROPHILS 78 % (28-66); PLATELET ESTIMATE NORMAL (NORMAL)
[2021-02-25] MEDS ORDERED: THERTAB21 PO (21:34)
[2021-02-25] MEDS ORDERED: D31000TA2 PO (21:34)
[2021-02-25] MEDS ORDERED: FLUO10CA16 PO (21:34)
[2021-02-25 21:35] LABS: CK-MB VALUE MASS 1.5 NG/ML (<3.6); CPK CREATINE PHOSPHOKINASE 75 U/L (26-192); FREE T4 0.95 NG/DL (0.76-1.46); TROPONIN I < 0.02 NG/ML (< 0.10)
[2021-02-25 21:47] LABS: RSV AMPLIFICATION NEGATIVE (NEGATIVE)
[2021-02-25] MEDS ORDERED: ISOVUE-370 76% 100ML VIAL As Ordered ONE (21:54)
[2021-02-25 22:04] LABS: BLOOD UREA NITROGEN 31 MG/DL (7-18); CALCIUM LEVEL 9.7 MG/DL (8.8-10.2); CARBON DIOXIDE LEVEL 26 MEQ/L (21-32); CHLORIDE LEVEL 108 MEQ/L (98-107); CREATININE FOR GFR 1.51 MG/DL (0.55-1.30); GLOMERULAR FILTRATION RATE 34.6 (>32); GLUCOSE, FASTING 166 MG/DL (70-100); POTASSIUM SERUM 4.3 MEQ/L (3.5-5.1); SODIUM LEVEL 139 MEQ/L (136-145)
--- NOTE | 2021-02-25 22:36 | REPVR ---
PROCEDURE INFORMATION: Exam: XR Chest Exam date and time: 02/25/21 (9:23pm) Age: 89 years old Clinical indication: Chest pain. Syncope / near-syncope. TECHNIQUE: Imaging protocol: Portable CXR Views: 1 view COMPARISON: Portable CXR of 05/24/19 FINDINGS: Lungs: Unremarkable. No consolidation. Pleural spaces: Unremarkable. No pleural effusions. No pneumothorax. Heart/Mediastinum: Heart may be top normal in size. Bones/joints: Mild dextroscoliosis of the thoracic spine. IMPRESSION: No acute findings. Similar appearance in May 2019. Electronically signed by: Carolynn Larkin On 02/25/2021 22:35:32 PM
--- NOTE | 2021-02-25 22:46 | REPVR ---
PROCEDURE INFORMATION: Exam: CT Head Without Contrast Exam date and time: 02/25/2021 10:10 PM Age: 89 years old Clinical indication: Syncope and collapse TECHNIQUE: Imaging protocol: Computed tomography of the head without contrast. Radiation optimization: All CT scans at this facility use at least one of these dose optimization techniques: automated exposure control; mA and/or kV adjustment per patient size (includes targeted exams where dose is matched to clinical indication); or iterative reconstruction. COMPARISON: CT Head without contrast 02/03/2016 12:15 PM FINDINGS: Brain: There are mild periventricular and subcortical lucencies consistent with chronic microvascular ischemic changes. The ferraro-white differentiation is maintained. No hemorrhage. No edema. Cerebral ventricles: No ventriculomegaly. Bones/joints: Unremarkable. No acute fracture. Paranasal sinuses: Visualized sinuses are unremarkable. No fluid levels. Mastoid air cells: Visualized mastoid air cells are well aerated. Orbital cavity: Bilateral cataract surgery. Soft tissues: Unremarkable. IMPRESSION: No acute intracranial abnormality. Chronic microvascular ischemic changes. Electronically signed by: Abdulaziz King On 02/25/2021 22:45:52 PM
--- NOTE | 2021-02-25 22:48 | REPVR ---
PROCEDURE INFORMATION: Exam: CT Cervical Spine Without Contrast Exam date and time: 02/25/2021 10:10 PM Age: 89 years old Clinical indication: Other: Syncope TECHNIQUE: Imaging protocol: Computed tomography images of the cervical spine without contrast. Radiation optimization: All CT scans at this facility use at least one of these dose optimization techniques: automated exposure control; mA and/or kV adjustment per patient size (includes targeted exams where dose is matched to clinical indication); or iterative reconstruction. COMPARISON: CT Spine,cervical w/o contrast 02/03/2016 12:15 PM FINDINGS: Bones/joints: No acute fracture. Normal alignment. Discs/Spinal canal/Neural foramina: There is multilevel uncovertebral and facet hypertrophy with neural foramina narrowing. Multilevel degenerative disc disease. Lungs: Lung apices are normal. Soft tissues: Unremarkable. IMPRESSION: No acute abnormality. Electronically signed by: Abdulaziz King On 02/25/2021 22:48:06 PM
--- NOTE | 2021-02-25 22:53 | REPVR ---
PROCEDURE INFORMATION: Exam: CT Abdomen and Pelvis With Contrast Exam date and time: 02/25/21 (10:10pm) Age: 89 years old Clinical indication: Diarrhea. Syncope. TECHNIQUE: Imaging protocol: Computed tomography of the abdomen and pelvis with contrast. Radiation optimization: All CT scans at this facility use at least one of these dose optimization techniques: automated exposure control; mA and/or kV adjustment per patient size (includes targeted exams where dose is matched to clinical indication); or iterative reconstruction. Contrast material: Isovue 370 Contrast volume: 100 ml Contrast route: IV COMPARISON: No relevant prior studies available FINDINGS: Lower lung serna: Coronary artery calcifications. Liver: Normal. No solid mass. Gallbladder and bile ducts: Mildly distended gallbladder. Multiple faintly calcified gallstones. No ductal dilatation. Pancreas: Normal. No ductal dilatation. Spleen: Normal. No splenomegaly. Adrenal glands: Normal. No mass. Kidneys and ureters: No hydronephrosis. Multiple bilateral renal cysts (largest cyst measures 3.8 cm diameter, at posterior right lower renal pole). Stomach and bowel: No bowel obstruction. No mucosal thickening. Scattered colonic diverticuli, most numerous in the sigmoid colon. Many fluid-filled small and large bowel loops (compatible with a diarrheal illness, eg). Appendix: A normal appendix is visualized. Other findings: Most likely previous ventral hernia repair. Intraperitoneal space: Unremarkable. No free air. No significant fluid collection. Vasculature: Unremarkable. No abdominal aortic aneurysm. Lymph nodes: Unremarkable. No enlarged lymph nodes. Urinary bladder: Unremarkable as visualized. Reproductive: Unremarkable as visualized. Fluid: Small amount of nonspecific lower pelvic fluid. Bones/joints: No acute fracture. Degenerative lumbar spine changes. Soft tissues: Unremarkable. IMPRESSION: No definite acute pathology. Mildly distended gallbladder, containing multiple faintly calcified stones. Fluid-filled small and large bowel loops -- compatible with a nonspecific diarrheal illness, eg. No hydronephrosis. Small amount of nonspecific lower pelvic fluid. Electronically signed by: Carolynn Larkin On 02/25/2021 22:53:03 PM
--- NOTE | 2021-02-25 23:01 | REPVR ---
PROCEDURE INFORMATION: Exam: CTA Chest with Contrast Exam date and time: 02/25/21 (10:10pm) Age: 89 years old Clinical indication: Syncope TECHNIQUE: Imaging protocol: Computed tomographic angiography of the chest with contrast. 3D rendering (Not supervised by radiologist): MIP and/or 3D reconstructed images were created by the technologist. Radiation optimization: All CT scans at this facility use at least one of these dose optimization techniques: automated exposure control; mA and/or kV adjustment per patient size (includes targeted exams where dose is matched to clinical indication); or iterative reconstruction. Contrast material: Isovue 370 Contrast volume: 100 ml Contrast route: IV COMPARISON: CTA CHEST of 05/24/19 FINDINGS: Pulmonary arteries: Normal. No pulmonary emboli. Aorta: No aortic aneurysm. No aortic dissection. Atherosclerotic aortic calcifications. Vasculature: Aberrant right subclavian artery (anatomic variation). Lungs: Unremarkable. No consolidation. No masses. Pleural spaces: Unremarkable. No pneumothorax. No pleural effusions. Heart: Unremarkable. No cardiomegaly. No pericardial effusion. Lymph nodes: Unremarkable. No enlarged lymph nodes. Bones/joints: No acute fracture. Degenerative thoracic spine changes. Soft tissues: Unremarkable. Upper abdomen: Mildly distended gallbladder, containing faintly calcified stones. Multiple bilateral renal cysts (kidneys are partially imaged). IMPRESSION: No acute findings. No filling defects suspicious for pulmonary emboli are seen. There is no CT evidence of aortic dissection nor leakage. No aortic aneurysm is appreciated. Electronically signed by: Carolynn Larkin On 02/25/2021 23:00:58 PM
[2021-02-25] MEDS ORDERED: NS 1,000 ML IV SCH (23:30)
[2021-02-25] MEDS ORDERED: MOM 30ML SUSPENSION UDC PO PRN (23:30)
[2021-02-25] MEDS ORDERED: MAALOX 30 ML SUSP *UDC PO PRN (23:30)
--- NOTE | 2021-02-25 23:34 | HPEPDOC ---
[facility] Medical History & Physical Date of Admission Feb 25, 2021 Date of Service: Feb 25, 2021 Primary Care Physician: Sophie Wesley Attending Physician: EMELI RAMOS MD History and Physical TIME OF SERVICE: 1150pm CHIEF COMPLAINT: diarrhea HISTORY OF PRESENT ILLNESS: This 89 yr old F has been having small brown loose stools that are about the size of her finger tips, several times a day, for a few months months; today she had an episode of uncontrollable watery brown jose rrhea that was associated with abdominal discomfort and loss of consciousness. She denies having f/c/n/v or weight loss. Her last c-scope in 2010 showed hemorrhoids and diverticulosis. REVIEW OF SYSTEMS: 12-point review of systems negative except as listed in HPI PAST MEDICAL/SURGICAL HISTORY: PE Essential HTN w chronic microvascular ischemic dz and HFpEF Mild Pulm HTN Aortic stenosis w mild stenosis DLP OA Osteoporosis Hemorrhoids Diverticulosis Atrophic vaginitis Breast cancer s/p L lumpectomy & radiation tx > 30 yrs ago Anxiety Inguinal hernia repair Cataract surgery SOCIAL HISTORY: She is , lives with her and doesnt smoke FAMILY HISTORY: HTN / skin cancer ALLERGIES: Please see below. HOME MEDICATIONS: Please see below. PHYSICAL EXAMINATION: Vital Signs Date Time Temp Pulse Resp B/P (MAP) Pulse Ox O2 Delivery O2 Flow Rate FiO2 02/25/21 20:36 96.4 77 18 180/79 (112) 100 Room Air GENERAL APPEARANCE: well nourished and developed / NAD HEENT: no scleral icterus / MMM&P CARDIOVASCULAR: RRR/NMRG/ no BLE edema LUNGS: CTAB on RA ABDOMEN: obese/ soft & NT w palpation INTEGUMENT: not flushed or jaundice NEUROLOGICAL: CN 2-12 grossly intact / speech not dysarthric PSYCHIATRIC: A&O x 3 able to understand and follow all commands LABORATORY DATA: IMAGING: CT head IMPRESSION: No acute intracranial abnormality. Chronic microvascular ischemic changes. Chest xray IMPRESSION: No acute findings. Similar appearance in May 2019. CT cervical spine IMPRESSION: No acute abnormality. CTA chest IMPRESSION: No acute findings. No filling defects suspicious for pulmonary emboli are seen. There is no CT evidence of aortic dissection nor leakage. No aortic aneurysm is appreciated. CT abd/pelvis IMPRESSION: No definite acute pathology. Mildly distended gallbladder, containing multiple faintly calcified stones. Fluid-filled small and large bowel loops -- compatible with a nonspecific diarrheal illness, eg. No hydronephrosis. Small amount of nonspecific lower pelvic fluid. MICROBIOLOGY: Respiratory panel neg ASSESSMENT: is an 89 yr old w a hx of PE, HTN, HFpEF, Pulm HTN, OA, osteoporosis, anxiety and remote hx of breast CA who presented w c/o small volume frequent stools for several months and acute diarrhea that was accompanied by LOC; her admitting diagnoses include syncope, HTN urgency & diarrhea. PLAN: 1 Syncope Likely vasovagal vs orthostatic vs 2/2 accelerated HTN She has a hx of syncope with bradycardia that was attributed to BB use. Plan: admit to [facility] w telemetry / f/u orthostats 2 HTN urgency vs Uncontrolled HTN w microvascular ischemic dz and HFpEF It is not clear if her BP was high when she lost consciousness Max BP 204/84 Trop wnl Plan: will aim to lower BP by 25% w/in the first 2-4 hours with target BP of <160/100 / avoid excessive environmental stimuli / resume Chlorthalidone, Sp ironolactone & Ramipril and add amlodipine if orthostats neg in the morning / low salt diet 3 Diarrhea Possibly 2/2 viral illness vs malignancy (bc of history of small volume frequent stools) Plan: f/u C.diff & GI panel / will ask day time team to refer her to for repeat C-scope to r/o malignancy 4 NN Anemia Malignancy is in the differential Plan: f/u Iron studies & stool occult 5 Lactic acidosis Possibly 2/2 dehydration due to diarrhea She doesnt have SIRS and the qSOFA score = 0 Plan: f/u repeat lactic acid after IVF 6 PE Plan: Rivaroxaban 7 DLP Plan: Atorvastatin 8 Class 1 obesity complicates care DVT n/a on DOAC Dispo: home after at least 2 midnights stay Home Medications Scheduled Atorvastatin Calcium (Lipitor) 20 Mg Tablet, 10 MG PO QHS Chlorthalidone (Chlorthalidone) 25 Mg Tablet, 25 MG PO DAILY Cholecalciferol (Vitamin D3) (Vitamin D3) 1,000 Unit Tablet, 2,000 UNITS PO DAILY Docusate Sodium (Docusate Sodium) 100 Mg Capsule, 100 MG PO DAILY Ferrous Sulfate (Ferrous Sulfate) 325 Mg Tablet, 325 MG PO BID Fluoxetine Hcl (Fluoxetine HCl) 10 Mg Capsule, 10 MG PO DAILY Multivit,Calc,Mins/Iron/Folic (Thera-M Tablet) 1 Each Tablet, 1 TAB PO DAILY Ramipril (Ramipril) 10 Mg Capsule, 10 MG PO QHS Rivaroxaban (Xarelto) 15 Mg Tablet, 15 MG PO DAILY @ 1700 Spironolactone (Spironolactone) 25 Mg Tab, 25 MG PO DAILY Scheduled PRN Acetaminophen (Acetaminophen) 325 Mg Tablet, 650 MG PO Q4H PRN for PAIN Lorazepam (Ativan) 0.5 Mg Tab, 0.5 MG PO TID PRN for ANXIETY Allergies Coded Allergies: Penicillins (Verified Allergy, Intermediate, SWELLING, 07/16/19) A-FIB/CHADSVASC A-FIB History Current/History of A-Fib/PAF?: No Current PO Anticoag Therapy: No EMELI RAMOS MD Feb 25, 2021 23:34
[2021-02-26] VITALS (7 sets, daily range): BP systolic 140–166; BP diastolic 60–81
[2021-02-26] MEDS ORDERED: ramipriL 5 MG CAP PO SCH (00:15)
[2021-02-26] MEDS: DOCUSATE SODIUM 100MG CAPSULE PO SCH ×3 (00:15→20:28)
[2021-02-26] MEDS: ATORVASTATIN 20 MG TAB PO SCH ×2 (00:15→20:28)
[2021-02-26] MEDS: LORazepam 0.5 MG TAB PO PRN ×2 (01:08→20:28)
[2021-02-26 06:17] LABS: HEMATOCRIT 28.7 % (36.0-47.0); HEMOGLOBIN 9.4 g/dl (12.0-15.5); MEAN CORPUSCULAR HEMOGLOBIN 30.3 pg (27.0-33.0); MEAN CORPUSCULAR HGB CONC 32.8 g/dl (32.0-36.5); MEAN CORPUSCULAR VOLUME 92.6 fl (80.0-96.0); PLATELET COUNT, AUTOMATED 216 10^3/uL (150-450); WHITE BLOOD COUNT 8.9 10^3/uL (4.0-10.0)
--- NOTE | 2021-02-26 06:27 | ECGEPIP ---
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
[2021-02-26 06:32] LABS: HEMOGLOBIN A1c 5.4 %
[2021-02-26 06:44] LABS: BLOOD UREA NITROGEN 26 MG/DL (7-18); CALCIUM LEVEL 8.6 MG/DL (8.8-10.2); CARBON DIOXIDE LEVEL 25 MEQ/L (21-32); CHLORIDE LEVEL 111 MEQ/L (98-107); CREATININE FOR GFR 1.12 MG/DL (0.55-1.30); FERRITIN 76 NG/ML (8-252); GLOMERULAR FILTRATION RATE 48.9 (>32); GLUCOSE, FASTING 105 MG/DL (70-100); IRON (FE) 28 UG/DL (50-170); PERCENT SATURATION 8.9 % (13.2-45.0); POTASSIUM SERUM 4.8 MEQ/L (3.5-5.1); SODIUM LEVEL 141 MEQ/L (136-145); TOTAL IRON BINDING CAPACITY 313 UG/DL (250-450)
[2021-02-26] MEDS: MULTIVITAMINS/MINERALS THERAP 1 TAB PO SCH (10:39)
[2021-02-26] MEDS: ACETAMINOPHEN TAB 650MG DOSE (2X325MG) PO PRN ×2 (10:39→20:28)
[2021-02-26] MEDS: FLUoxetine 10 MG CAP PO SCH (10:39)
[2021-02-26] MEDS: CHLORTHALIDONE 25 MG TAB PO SCH (10:39)
[2021-02-26] MEDS: SPIRONOLACTONE 25 MG TAB PO SCH (10:39)
[2021-02-26] MEDS: VITAMIN D 1,000 INTERNATIONAL UNITS TABLET PO SCH (10:40)
--- NOTE | 2021-02-26 16:29 | IPNPDOC ---
Date Seen The patient was seen on 02/26/21. Progress Note SUBJECTIVE: No diarrhea since admission, tolerating diet. PT/OT to work with patient today. VS stable. OBJECTIVE PHYSICAL EXAMINATION: VS: Please see below GENERAL APPEARANCE: NAD, resting in bed, AAOx 3 HEENT: no scleral icterus / MMM&P CARDIOVASCULAR: RRR/NMRG/ no BLE edema LUNGS: CTAB on RA ABDOMEN: obese/ soft & NT w palpation INTEGUMENT: not flushed or jaundice NEUROLOGICAL: CN 2-12 grossly intact / speech not dysarthric PSYCHIATRIC: A&O x 3 able to understand and follow all commands LABORATORY DATA: Please see below IMAGING: CT head IMPRESSION: No acute intracranial abnormality. Chronic microvascular ischemic changes. Chest xray IMPRESSION: No acute findings. Similar appearance in May 2019. CT cervical spine IMPRESSION: No acute abnormality. CTA chest IMPRESSION: No acute findings. No filling defects suspicious for pulmonary emboli are seen. There is no CT evidence of aortic dissection nor leakage. No aortic aneurysm is appreciated. CT abd/pelvis IMPRESSION: No definite acute pathology. Mildly distended gallbladder, containing multiple faintly calcified stones. Fluid-filled small and large bowel loops -- compatible with a nonspecific diarrheal illness, eg. No hydronephrosis. Small amount of nonspecific lower pelvic fluid. MICROBIOLOGY: Respiratory panel neg ASSESSMENT: is an 89 yr old w a hx of PE, HTN, HFpEF, Pulm HTN, OA, osteoporosis, anxiety and remote hx of breast CA who presented w c/o small volume frequent stools for several months and acute diarrhea that was accompanied by LOC; her admitting diagnoses include syncope, HTN urgency & diarrhea. PLAN: Diarrhea, acute likely gastroenteritis, possibly viral -No diarrhea since admission -GI panel not sent -No longer on fluids and tolerating meals well without n/v -Continue to monitor HTN urgency vs uncontrolled HTN w microvascular ischemic dz and HFpEF- improved -BP 160's today -Tele no events, trop wnl -C/w home medications, low salt diet Syncope likely isolated vasovagal episode 2/2 accelerated HTN -Orthostatics neg here, VS stable without bradycardia -Remote hx of syncope with bradycardia that was attributed to BB use. -No neurological findings -CT head above neg -Eating, drinking well here, no diarrhea -Tele MAURICIO likely 2/2 to dehydration with meds- resolved -Cr wnl today -Resume home meds, including diuretics. continue to hold ACei for now -Encourage fluids Q2hrs while awake, eating well -Daily labs Weakness 2/2 to acute illness above -Hx of OA, uses cane at baseline -F/u PT/OT notes [place] -Low iron -Started ferrous sulfate BID -Holding off on colace BID with recent diarrhea -Daily CBC PE -Rivaroxaban DLP -Atorvastatin Class 1 obesity -complicates care DVT pX: Rivaroxaban Resolved issues: Lactic acidosis likely 2/2 dehydration due to diarrhea DISPOSITION: PT/OT today. If no symptoms,all remains improved then likely discha rge home in the AM with f/u with PCP. VS, I&O, 24H, Fishbone Vital Signs/I&O Vital Signs Date Time Temp Pulse Resp B/P (MAP) Pulse Ox O2 Delivery O2 Flow Rate FiO2 02/26/21 14:00 97.3 77 16 148/65 (92) 99 Room Air I&O- Last 24 Hours up to 6 AM 02/26/21 06:00 Intake Total 1060 ml Output Total 200 ml Balance 860 ml Laboratory Data 24H LABS Laboratory Tests 2 02/25/21 20:51: Neutrophils (%) (Auto) , Nucleated Red Blood Cells % (auto) 0.0, Neutrophils 78H, Band Neutrophils 3, Lymphocytes (Manual) 12L, Monocytes (Manual) 7H, Platelet Estimate NORMAL, Prothrombin Time 19.0H, Prothromb Time International Ratio 1.55, Activated Partial Thromboplast Time 30.3, Anion Gap 5L, Glomerular Filtration Rate 34.6, Lactic Acid Level 2.5*H, Calcium Level 9.7, Magnesium Level 2.0, Total Creatine Kinase 75, Creatine Kinase MB 1.5, Creatine Kinase MB Relative Index 2.00, Troponin I < 0.02, Thyroid Stimulating Hormone (TSH) 5.340H, Free Thyroxine 0.95, Coronavirus (COVID-19)(PCR) NEGATIVE, Influenza Type A (RT-PCR) NEGATIVE, Influenza Type B (RT-PCR) NEGATIVE, Respiratory Syncytial Virus (PCR) NEGATIVE 02/25/21 20:58: Bedside Glucose (Misc Panel) 107 02/25/21 21:47: POC Glucose (Misc Panel) 158H, POC Sodium (Misc Panel) 141, POC Potassium (Misc Panel) 4.5, POC Chloride (Misc Panel) 106, POC Total CO2 (Misc Panel) 23.0, POC Blood Urea Nitrogen (Misc Panel 31H, POC Ionized Calcium (Misc Panel) 5.1, POC Creatinine (Misc Panel) 1.3, POC Hematocrit (Misc Panel) 54.0H 02/26/21 01:37: Lactic Acid Followup at 4 Hours 1.2 02/26/21 05:53: Nucleated Red Blood Cells % (auto) 0.0, Anion Gap 5L, Glomerular Filtration Rate 48.9, Estimated Mean Plasma Glucose 108, Hemoglobin A1c 5.4, Calcium Level 8.6L, Iron Level 28L, Total Iron Binding Capacity 313, Transferrin % Saturation 8.9L, Ferritin 76 CBC/BMP Laboratory Tests 02/25/21 20:51 02/26/21 05:53 Trinity Day MD Feb 26, 2021 16:29
[2021-02-26] MEDS ORDERED: RIVAROXABAN 15 MG TAB (XARELTO) PO SCH (18:00)
[2021-02-26] MEDS: FERROUS SULFATE 325MG TAB PO SCH (20:28)
[2021-02-27 06:00] VITALS: BP 161/75
[2021-02-27 06:59] LABS: HEMATOCRIT 30.1 % (36.0-47.0); HEMOGLOBIN 9.9 g/dl (12.0-15.5); MEAN CORPUSCULAR HEMOGLOBIN 30.6 pg (27.0-33.0); MEAN CORPUSCULAR HGB CONC 32.9 g/dl (32.0-36.5); MEAN CORPUSCULAR VOLUME 92.9 fl (80.0-96.0); PLATELET COUNT, AUTOMATED 217 10^3/uL (150-450); RED BLOOD COUNT 3.24 10^6/uL (4.00-5.40); WHITE BLOOD COUNT 5.3 10^3/uL (4.0-10.0)
[2021-02-27 07:29] LABS: CALCIUM LEVEL 9.1 MG/DL (8.8-10.2); CREATININE FOR GFR 1.05 MG/DL (0.55-1.30); GLOMERULAR FILTRATION RATE 52.7 (>32); POTASSIUM SERUM 4.2 MEQ/L (3.5-5.1)
[2021-02-27] MEDS ORDERED: FERR1TAB8 PO (07:46)
[2021-02-27] MEDS ORDERED: DOCU100C17 PO (07:46)
[2021-02-27] MEDS: VITAMIN D 1,000 INTERNATIONAL UNITS TABLET PO SCH (09:07)
[2021-02-27] MEDS: CHLORTHALIDONE 25 MG TAB PO SCH (09:07)
[2021-02-27] MEDS: FERROUS SULFATE 325MG TAB PO SCH (09:07)
[2021-02-27] MEDS: SPIRONOLACTONE 25 MG TAB PO SCH (09:07)
[2021-02-27] MEDS: MULTIVITAMINS/MINERALS THERAP 1 TAB PO SCH (09:07)
[2021-02-27] MEDS: DOCUSATE SODIUM 100MG CAPSULE PO SCH (09:07)
[2021-02-27] MEDS: FLUoxetine 10 MG CAP PO SCH (09:11)
[2021-02-27] MEDS: ACETAMINOPHEN TAB 650MG DOSE (2X325MG) PO PRN (09:13)
--- NOTE | 2021-02-27 15:00 | DS.PDOC ---
Discharge Summary General Date of Admission Feb 25, 2021 at 20:27 Date of Discharge 02/27/21 Attending Physician: Triniyt Day MD Discharge Summary HISTORY OF PRESENT ILLNESS: Patient is an 89 yr old F with PMH below who has been having small brown loose stools that are about the size of her finger tips several times a day for a few months months. Day of admission she had an episode of uncontrollable watery brown diarrhea that was associated with abdominal discomfort and loss of consciousness. She denies having f/c/n/v or weight loss. Her last c-scope in 2010 showed hemorrhoids and diverticulosis. HOSPITAL COURSE: Overnight there were no documented episodes of loss of consciousness, orthostatics were neg, neuro checks were also neg. She had no additional bouts of diarrhea and remained on IVFs overnight. GI panel was not sent. She tolerated her meals well. Blood pressure and diagnosis of HTN urgency vs uncontrolled HTN w microvascular ischemic dz and HFpEF showed to improve, all home meds aside from ramipril was restarted. Episodes of LoC was likely thought to be 2/2 to vasovagal episode 2/2 accelerated HTN, CT head neg. Acute kidney injury was likely 2/2 to dehydration and her home medications combined. She later had normal Cr numbers and was restarted on home medications at discharge. She is encouraged to continue to hydrate during the day and follow up with her PCP to get BMP in the next several weeks. She was evaluated by PT and found to be at baseline for discharge. New medication includes ferrous sulfate for [place]. At time of discharge on 02/27/21 she had no acute complaints. PAST MEDICAL/SURGICAL HISTORY: PE Essential HTN w chronic microvascular ischemic dz and HFpEF Mild Pulm HTN Aortic stenosis w mild stenosis DLP OA Osteoporosis Hemorrhoids Diverticulosis Atrophic vaginitis Breast cancer s/p L lumpectomy & radiation tx > 30 yrs ago Anxiety Inguinal hernia repair Cataract surgery SOCIAL HISTORY: She is , lives with her and doesnt smoke FAMILY HISTORY: HTN / skin cancer DISCHARGE MEDICATIONS: Please see below PHYSICAL EXAMINATION: VS: Please see below GENERAL APPEARANCE: NAD, resting in bed, AAOx 3 HEENT: no scleral icterus / MMM&P CARDIOVASCULAR: RRR/NMRG/ no BLE edema LUNGS: CTAB on RA ABDOMEN: obese/ soft & NT w palpation INTEGUMENT: not flushed or jaundice NEUROLOGICAL: CN 2-12 grossly intact / speech not dysarthric PSYCHIATRIC: A&O x 3 able to understand and follow all commands LABORATORY DATA: Please see below IMAGING: CT head IMPRESSION: No acute intracranial abnormality. Chronic microvascular ischemic changes. Chest xray IMPRESSION: No acute findings. Similar appearance in May 2019. CT cervical spine IMPRESSION: No acute abnormality. CTA chest IMPRESSION: No acute findings. No filling defects suspicious for pulmonary emboli are seen. There is no CT evidence of aortic dissection nor leakage. No aortic aneurysm is appreciated. CT abd/pelvis IMPRESSION: No definite acute pathology. Mildly distended gallbladder, containing multiple faintly calcified stones. Fluid-filled small and large bowel loops -- compatible with a nonspecific diarrheal illness, eg. No hydronephrosis. Small amount of nonspecific lower pelvic fluid. MICROBIOLOGY: Respiratory panel neg ASSESSMENT: is an 89 yr old w a hx of PE, HTN, HFpEF, Pulm HTN, OA, osteoporosis, anxiety and remote hx of breast CA who presented w c/o small volume frequent stools for several months and acute diarrhea that was accompanied by LOC; her admitting diagnoses include syncope, HTN urgency & diarrhea. PLAN: Diarrhea, acute likely gastroenteritis, possibly viral -No diarrhea since admission -GI panel not sent -No longer on fluids and tolerating meals well without n/v HTN urgency vs uncontrolled HTN w microvascular ischemic dz and HFpEF- resolved -BP better controlled -C/w home medications, low salt diet Brief loss of conciousness likely isolated vasovagal episode 2/2 accelerated HTN -Orthostatics neg here, VS stable without bradycardia -Remote hx of syncope with bradycardia that was attributed to BB use. -No neurological findings -CT head above neg -Eating, drinking well here, no diarrhea -BP control above [place] likely 2/2 to dehydration with meds- resolved -Cr wnl today -Resume home meds, including diuretics. -Encourage fluids Q2hrs while awake, eating well , f/u with PCP to recheck labs on next appt Weakness 2/2 to acute illness above -Hx of OA, uses cane at baseline -PT: cleared for home without services [place] -Low iron -Started ferrous sulfate BID -Holding off on colace BID with recent diarrhea -F/u with PCP PE -Rivaroxaban DLP -Atorvastatin Class 1 obesity -complicates care Resolved issues: Lactic acidosis likely 2/2 dehydration due to diarrhea DISPOSITION: Discharge home today to f/u with PCP. TIME SPENT ON DISCHARGE: 35 minutes. Vital Signs/I&Os Vital Signs Date Time Temp Pulse Resp B/P (MAP) Pulse Ox O2 Delivery O2 Flow Rate FiO2 02/27/21 06:00 97.3 68 19 161/75 (103) 100 Room Air I&O- Last 24 Hours up to 6 AM 02/27/21 06:00 Intake Total 1996 ml Output Total 1850 ml Balance 146 ml Laboratory Data Labs 24H Laboratory Tests 2 02/27/21 06:40: Nucleated Red Blood Cells % (auto) 0.0, Anion Gap 6L, Glomerular Filtration Rate 52.7, Calcium Level 9.1 CBC/BMP Laboratory Tests 02/27/21 06:40 Microbiology Microbiology 02/27/21 Stool Occult Blood (VU) - Final, Complete Discharge Medications Scheduled Atorvastatin Calcium (Lipitor) 20 Mg Tablet, 10 MG PO QHS, (Reported) Chlorthalidone (Chlorthalidone) 25 Mg Tablet, 25 MG PO DAILY, (Reported) Cholecalciferol (Vitamin D3) (Vitamin D3) 1,000 Unit Tablet, 2,000 UNITS PO DAILY, (Reported) Docusate Sodium (Docusate Sodium) 100 Mg Capsule, 100 MG PO DAILY Ferrous Sulfate (Ferrous Sulfate) 325 Mg Tablet, 325 MG PO BID Fluoxetine Hcl (Fluoxetine HCl) 10 Mg Capsule, 10 MG PO DAILY, (Reported) Multivit,Calc,Mins/Iron/Folic (Thera-M Tablet) 1 Each Tablet, 1 TAB PO DAILY, (Reported) Ramipril (Ramipril) 10 Mg Capsule, 10 MG PO QHS, (Reported) Rivaroxaban (Xarelto) 15 Mg Tablet, 15 MG PO DAILY, (Reported) @ 1700 Spironolactone (Spironolactone) 25 Mg Tab, 25 MG PO DAILY, (Reported) Scheduled PRN Acetaminophen (Acetaminophen) 325 Mg Tablet, 650 MG PO Q4H PRN for PAIN, (Reported) Lorazepam (Ativan) 0.5 Mg Tab, 0.5 MG PO TID PRN for ANXIETY, (Reported) Allergies Coded Allergies: Penicillins (Verified Allergy, Intermediate, SWELLING, 07/16/19) Trinity Day MD Feb 27, 2021 15:00
[2021-02-28 07:05] LABS: FOLATE > 24.0 NG/ML (>5.4); VITAMIN B12 LEVEL 367 PG/ML (247-911)
== END 2021-02-27 10:37 | disposition home or self-care (01) ==
LOC: M ED 20:26 → M ED INP 20:27 → M MSPAV 02-26 00:51
PROVIDERS: ADMIT Internal Medicine; ATTEND Internal Medicine
DX: K52.9 Noninfective gastroenteritis and colitis, unspecified (principal); R55 Syncope and collapse; E86.0 Dehydration; N17.9 Acute kidney failure, unspecified; R53.1 Weakness; I16.0 Hypertensive urgency; E66.9 Obesity, unspecified; D50.9 Iron deficiency anemia, unspecified; E78.49 Other hyperlipidemia; M81.0 Age-related osteoporosis without current pathological fracture; F41.9 Anxiety disorder, unspecified; Z79.899 Other long term (current) drug therapy; Z79.01 Long term (current) use of anticoagulants; Z88.0 Allergy status to penicillin; Z86.711 Personal history of pulmonary embolism
CPT/HCPCS: 36415; 70450; 71045; 71275; 72125; 74177; 80047; 80048; 82270; 82550; 82553; 82607; 82728; 82746; 83036; 83550; 83605; 83735; 84439; 84443; 84484; 85025; 85027; 85610; 85730; 87631; 93005; 93041; 94760; 96360; 97161; 97530; 99285; G0378; Q9967

== ENCOUNTER 2021-05-19 13:15 | Emergency (ER) | payer MEDICARE, OTHER ==
[~2021-05-19] VITALS: Ht 154.9 cm; Wt 81.8 kg
[~2021-05-19 13:15] MED LIST changes: +D31000TA2 PO; +FERR1TAB8 PO; +FLUO10CA16 PO; +OMEP40CA4 PO; -OMEP40CA97 PO; +THERTAB21 PO
--- NOTE | 2021-05-19 14:08 | REP ---
INDICATION: diarrhea/syncope. COMPARISON: None. FINDINGS: Supine and upright views of the abdomen show the intestinal gas pattern to be nonspecific. Gas and stool is seen throughout the colon within the rectosigmoid region. The organ silhouettes insofar as delineated appear unremarkable. No abdominal calcific densities are seen within the abdomen or pelvis. The accompanying single frontal view of the chest shows no free subdiaphragmatic air, cardiomegaly, infiltrates or effusions. IMPRESSION: Nonspecific intestinal gas pattern. <Electronically signed by Bolivar Kevin > 05/19/21 [id number]
[2021-05-19 14:17] LABS: BASO % 0.3 % (0.0-1.0); EOS # 0.1 10^3/uL (0.0-0.5); EOS % 1.9 % (0.0-3.0); HEMATOCRIT 30.7 % (36.0-47.0); HEMOGLOBIN 10.2 g/dl (12.0-15.5); LYMPH # 1.3 10^3/uL (1.5-5.0); LYMPH % 20.7 % (24.0-44.0); MEAN CORPUSCULAR HEMOGLOBIN 30.4 pg (27.0-33.0); MEAN CORPUSCULAR HGB CONC 33.2 g/dl (32.0-36.5); MEAN CORPUSCULAR VOLUME 91.4 fl (80.0-96.0); MONO # 0.6 10^3/uL (0.0-0.8); NEUTROPHILS # 4.3 10^3/uL (1.5-8.5); NEUTROPHILS % 66.8 % (36.0-66.0); PLATELET COUNT, AUTOMATED 247 10^3/uL (150-450); RED BLOOD COUNT 3.36 10^6/uL (4.00-5.40); WHITE BLOOD COUNT 6.4 10^3/uL (4.0-10.0)
[2021-05-19 14:59] LABS: BLOOD UREA NITROGEN 42 MG/DL (7-18); CALCIUM LEVEL 9.4 MG/DL (8.8-10.2); CARBON DIOXIDE LEVEL 28 MEQ/L (21-32); CHLORIDE LEVEL 105 MEQ/L (98-107); CK-MB VALUE MASS 1.7 NG/ML (<3.6); CPK CREATINE PHOSPHOKINASE 52 U/L (26-192); CREATININE FOR GFR 1.43 MG/DL (0.55-1.30); FREE T4 0.96 NG/DL (0.76-1.46); GLOMERULAR FILTRATION RATE 36.8 (>32); GLUCOSE, FASTING 83 MG/DL (70-100); MAGNESIUM LEVEL 2.2 MG/DL (1.8-2.4); MB/CK RELATIVE INDEX 3.27 (< OR =4); POTASSIUM SERUM 5.2 MEQ/L (3.5-5.1); SODIUM LEVEL 139 MEQ/L (136-145); TROPONIN I < 0.02 NG/ML (< 0.10)
[2021-05-19] MEDS ORDERED: NS 500 ML IV ONE (15:50)
--- NOTE | 2021-05-19 17:01 | ECGEPIP ---
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
[2021-05-19 17:55] VITALS: BP 160/74
== END 2021-05-19 17:56 | disposition home or self-care (01) ==
LOC: M ED 13:15 → EDBD 13:15 → M ED 17:56
DX: E86.0 Dehydration (principal); F33.9 Major depressive disorder, recurrent, unspecified; I10 Essential (primary) hypertension; E78.5 Hyperlipidemia, unspecified; K21.9 Gastro-esophageal reflux disease without esophagitis; Z86.711 Personal history of pulmonary embolism; Z88.0 Allergy status to penicillin; Z79.899 Other long term (current) drug therapy

== ENCOUNTER → 2021-05-26 | Outpatient (REF) | payer MEDICARE, OTHER | LOC: M LAB REF 17:03 | PROVIDERS: ATTEND Internal Medicine | DX: D64.9 Anemia, unspecified (principal) ==

== ENCOUNTER 2021-11-26 14:07 | Inpatient (IN) | payer MEDICARE, OTHER ==
[~2021-11-26] VITALS: Ht 154.9 cm; Wt 87.0 kg
[~2021-11-26 14:07] MED LIST changes: +FLUO-96 PO; -FLUO10CA16 PO; +FLUO10CA18 PO; -FLUO20CA20 PO
[2021-11-26] MEDS ORDERED: FURO20TA2 PO (14:23)
[2021-11-26 14:45] LABS: BASO % 0.1 % (0.0-1.0); HEMATOCRIT 26.9 % (36.0-47.0); LYMPH # 0.6 10^3/uL (1.5-5.0); LYMPH % 4.9 % (24.0-44.0); MEAN CORPUSCULAR HEMOGLOBIN 30.7 pg (27.0-33.0); MEAN CORPUSCULAR HGB CONC 33.5 g/dl (32.0-36.5); MEAN CORPUSCULAR VOLUME 91.8 fl (80.0-96.0); MONO # 0.9 10^3/uL (0.0-0.8); MONO % 7.3 % (2.0-8.0); NEUTROPHILS # 11.2 10^3/uL (1.5-8.5); NEUTROPHILS % 87.3 % (36.0-66.0); PLATELET COUNT, AUTOMATED 252 10^3/uL (150-450); RED BLOOD COUNT 2.93 10^6/uL (4.00-5.40); WHITE BLOOD COUNT 12.8 10^3/uL (4.0-10.0)
[2021-11-26] MEDS ORDERED: DIGOXIN INJ 0.5 MG/2 ML AMP (J1160) IV ONE ×2 (14:55→16:10)
[2021-11-26 15:16] LABS: CALCIUM LEVEL 9.2 MG/DL (8.8-10.2); CREATININE FOR GFR 1.31 MG/DL (0.55-1.30); GLOMERULAR FILTRATION RATE 40.7 (>32); POTASSIUM SERUM 4.5 MEQ/L (3.5-5.1); THYROID STIMULATING HORMONE 0.952 uIU/ML (0.358-3.740)
[2021-11-26] MEDS ORDERED: FLUO20CA22 PO (17:16)
[2021-11-26] MEDS ORDERED: ALEN70TA82 PO (17:16)
[2021-11-26] MEDS ORDERED: HOME MED LIST COMPLETE! XX SCH (17:20)
[2021-11-26] MEDS ORDERED: MOM 30ML SUSPENSION UDC PO PRN (17:40)
[2021-11-26] MEDS ORDERED: MAALOX 30 ML SUSP *UDC PO PRN (17:40)
[2021-11-26] MEDS ORDERED: ACETAMINOPHEN TAB 650MG DOSE (2X325MG) PO PRN (17:40)
[2021-11-26 18:33] LABS: CK-MB VALUE MASS 1.9 NG/ML (<3.6); MB/CK RELATIVE INDEX 2.75 (< OR =4)
[2021-11-26 18:35] VITALS: BP 124/70
[2021-11-26] MEDS ORDERED: AMIODARONE HCL 150 MG in IV 1 EA IV STA (19:38)
[2021-11-26 20:00] VITALS: BP 124/75
[2021-11-26] MEDS: LORazepam 0.5 MG TAB PO PRN (20:14)
[2021-11-26] MEDS ORDERED: DIGOXIN INJ 0.5 MG/2 ML AMP (J1160) IV SCH (20:30)
[2021-11-26] MEDS ORDERED: ramipriL 5 MG CAP PO SCH (21:00)
[2021-11-26] MEDS ORDERED: RIVAROXABAN 15 MG TAB (XARELTO) PO SCH (21:00)
[2021-11-26] MEDS ORDERED: ATORVASTATIN 10 MG TAB PO SCH (21:00)
[2021-11-26 21:38] LABS: CK-MB VALUE MASS 2.8 NG/ML (<3.6); MB/CK RELATIVE INDEX 3.78 (< OR =4)
[2021-11-26] MEDS ORDERED: AMIODARONE HCL 360 MG in IV 1 EA IV SCH (22:15)
[2021-11-27] VITALS: BP 125/65
[2021-11-27 00:50] LABS: CK-MB VALUE MASS 3.7 NG/ML (<3.6); MB/CK RELATIVE INDEX 5.21 (< OR =4)
[2021-11-27 04:00] VITALS: BP 140/65
[2021-11-27 04:12] LABS: BASO % 0.1 % (0.0-1.0); HEMATOCRIT 28.3 % (36.0-47.0); HEMOGLOBIN 9.2 g/dl (12.0-15.5); LYMPH # 1.1 10^3/uL (1.5-5.0); LYMPH % 9.8 % (24.0-44.0); MEAN CORPUSCULAR HEMOGLOBIN 30.7 pg (27.0-33.0); MEAN CORPUSCULAR HGB CONC 32.5 g/dl (32.0-36.5); MEAN CORPUSCULAR VOLUME 94.3 fl (80.0-96.0); MONO # 0.9 10^3/uL (0.0-0.8); MONO % 7.5 % (2.0-8.0); NEUTROPHILS # 9.4 10^3/uL (1.5-8.5); NEUTROPHILS % 82.2 % (36.0-66.0); PLATELET COUNT, AUTOMATED 243 10^3/uL (150-450); WHITE BLOOD COUNT 11.4 10^3/uL (4.0-10.0)
[2021-11-27] MEDS ORDERED: AMIODARONE HCL 360 MG in IV 1 EA IV SCH (04:15)
[2021-11-27 04:38] LABS: CK-MB VALUE MASS 3.1 NG/ML (<3.6); MB/CK RELATIVE INDEX 4.37 (< OR =4)
[2021-11-27 05:24] LABS: ALBUMIN 3.4 GM/DL (3.2-5.2); ALT/SGPT 20 U/L (12-78); BLOOD UREA NITROGEN 38 MG/DL (7-18); CALCIUM LEVEL 8.8 MG/DL (8.8-10.2); CARBON DIOXIDE LEVEL 27 MEQ/L (21-32); CHLORIDE LEVEL 110 MEQ/L (98-107); CREATININE FOR GFR 1.35 MG/DL (0.55-1.30); DIGOXIN LEVEL 2.8 NG/ML (0.5-2.0); GLOMERULAR FILTRATION RATE 39.3 (>32); GLUCOSE, FASTING 124 MG/DL (70-100); MAGNESIUM LEVEL 2.3 MG/DL (1.8-2.4); POTASSIUM SERUM 4.8 MEQ/L (3.5-5.1); SODIUM LEVEL 140 MEQ/L (136-145); TOTAL PROTEIN 6.8 GM/DL (6.4-8.2)
[2021-11-27 05:33] LABS: BILIRUBIN,TOTAL < 0.1 MG/DL (0.2-1.0)
[2021-11-27 06:40] LABS: CHOLESTEROL LEVEL 142 MG/DL (<200); CHOLESTEROL RISK RATIO 3.155 (<5); HDL CHOLESTEROL 45 MG/DL (>40); LDL CHOLESTEROL 73 MG/DL (<100); NON-HDL-C 97 MG/DL; TRIGLYCERIDES LEVEL 120 MG/DL (<150)
[2021-11-27 06:49] LABS: HEMOGLOBIN A1c 5.4 %
[2021-11-27 07:19] LABS: CK-MB VALUE MASS 3.1 NG/ML (<3.6); MB/CK RELATIVE INDEX 4.43 (< OR =4)
[2021-11-27 08:00] VITALS: BP 119/59
[2021-11-27] MEDS ORDERED: CLOPIDOGREL 300 MG TAB (PLAVIX) PO STA (08:04)
[2021-11-27] MEDS: MULTIVITAMINS/MINERALS THERAP 1 TAB PO SCH (09:26)
[2021-11-27] MEDS: FUROSEMIDE 20 MG TAB PO SCH (09:26)
[2021-11-27] MEDS: SPIRONOLACTONE 12.5MG PER 1/2 TABLET PO SCH (09:26)
[2021-11-27] MEDS: FLUoxetine 20 MG CAP PO SCH (09:27)
[2021-11-27 12:00] VITALS: BP 118/58
[2021-11-27 13:01] LABS: CK-MB VALUE MASS 2.7 NG/ML (<3.6); MB/CK RELATIVE INDEX 4.35 (< OR =4)
[2021-11-27 15:27] LABS: CK-MB VALUE MASS 2.9 NG/ML (<3.6); MB/CK RELATIVE INDEX 4.92 (< OR =4)
[2021-11-27 16:00] VITALS: BP 148/69
[2021-11-27 20:00] VITALS: BP 177/74
[2021-11-27] MEDS: ATORVASTATIN 20 MG TAB PO SCH (20:28)
[2021-11-27] MEDS: LORazepam 0.5 MG TAB PO PRN (20:28)
[2021-11-28] VITALS (7 sets, daily range): BP systolic 139–193; BP diastolic 52–80
[2021-11-28 06:10] LABS: BASO % 0.1 % (0.0-1.0); EOS % 0.2 % (0.0-3.0); HEMATOCRIT 29.9 % (36.0-47.0); HEMOGLOBIN 9.5 g/dl (12.0-15.5); LYMPH # 1.1 10^3/uL (1.5-5.0); LYMPH % 13.2 % (24.0-44.0); MEAN CORPUSCULAR HEMOGLOBIN 30.1 pg (27.0-33.0); MEAN CORPUSCULAR HGB CONC 31.8 g/dl (32.0-36.5); MEAN CORPUSCULAR VOLUME 94.6 fl (80.0-96.0); MONO # 0.8 10^3/uL (0.0-0.8); MONO % 9.4 % (2.0-8.0); NEUTROPHILS # 6.4 10^3/uL (1.5-8.5); NEUTROPHILS % 76.7 % (36.0-66.0); PLATELET COUNT, AUTOMATED 252 10^3/uL (150-450); RED BLOOD COUNT 3.16 10^6/uL (4.00-5.40); WHITE BLOOD COUNT 8.3 10^3/uL (4.0-10.0)
[2021-11-28 07:00] LABS: ALBUMIN 3.1 GM/DL (3.2-5.2); BILIRUBIN,TOTAL 0.3 MG/DL (0.2-1.0); CALCIUM LEVEL 9.3 MG/DL (8.8-10.2); CREATININE FOR GFR 1.19 MG/DL (0.55-1.30); DIGOXIN LEVEL 1.2 NG/ML (0.5-2.0); GLOMERULAR FILTRATION RATE 45.5 (>32); MAGNESIUM LEVEL 2.2 MG/DL (1.8-2.4); POTASSIUM SERUM 4.6 MEQ/L (3.5-5.1); TOTAL PROTEIN 6.6 GM/DL (6.4-8.2)
[2021-11-28] MEDS: SPIRONOLACTONE 12.5MG PER 1/2 TABLET PO SCH (08:06)
[2021-11-28] MEDS: FLUoxetine 20 MG CAP PO SCH (08:07)
[2021-11-28] MEDS: MULTIVITAMINS/MINERALS THERAP 1 TAB PO SCH (08:07)
[2021-11-28] MEDS: FUROSEMIDE 20 MG TAB PO SCH (08:07)
[2021-11-28] MEDS: SODIUM CHLORIDE NASAL 0.65% SPRAY BTL (OCEAN) SCH ×2 (09:00→21:08)
[2021-11-28] MEDS: LORazepam 0.5 MG TAB PO PRN ×2 (14:12→21:11)
[2021-11-28] MEDS ORDERED: ASPIRIN 81 MG CHEW TABLET PEG SCH (16:30)
[2021-11-28] MEDS ORDERED: RIVAROXABAN 15 MG TAB (XARELTO) PO SCH (18:00)
[2021-11-28] MEDS: ATORVASTATIN 20 MG TAB PO SCH (21:08)
[2021-11-28] MEDS: AMIODARONE 200 MG TAB (PACERONE) PO SCH (21:08)
[2021-11-29 04:00] VITALS: BP_SYST 162; BP_SYST 168; BP_DIAS 80
[2021-11-29 05:27] LABS: BASO % 0.1 % (0.0-1.0); EOS # 0.1 10^3/uL (0.0-0.5); EOS % 0.9 % (0.0-3.0); HEMATOCRIT 31.7 % (36.0-47.0); HEMOGLOBIN 10.3 g/dl (12.0-15.5); LYMPH # 1.5 10^3/uL (1.5-5.0); LYMPH % 20.4 % (24.0-44.0); MEAN CORPUSCULAR HEMOGLOBIN 30.2 pg (27.0-33.0); MEAN CORPUSCULAR HGB CONC 32.5 g/dl (32.0-36.5); MONO # 0.8 10^3/uL (0.0-0.8); MONO % 10.8 % (2.0-8.0); NEUTROPHILS % 67.3 % (36.0-66.0); PLATELET COUNT, AUTOMATED 267 10^3/uL (150-450); RED BLOOD COUNT 3.41 10^6/uL (4.00-5.40); WHITE BLOOD COUNT 7.4 10^3/uL (4.0-10.0)
[2021-11-29 06:00] LABS: CALCIUM LEVEL 9.2 MG/DL (8.8-10.2); CREATININE FOR GFR 1.27 MG/DL (0.55-1.30); GLOMERULAR FILTRATION RATE 42.2 (>32); POTASSIUM SERUM 4.5 MEQ/L (3.5-5.1)
[2021-11-29 06:01] LABS: ALBUMIN 3.1 GM/DL (3.2-5.2); BILIRUBIN,TOTAL 0.3 MG/DL (0.2-1.0)
[2021-11-29 08:00] VITALS: BP 138/68
[2021-11-29] MEDS ORDERED: ASPIRIN 81 MG CHEW TABLET PO SCH (09:00)
[2021-11-29] MEDS: AMIODARONE 200 MG TAB (PACERONE) PO SCH (09:25)
[2021-11-29] MEDS: MULTIVITAMINS/MINERALS THERAP 1 TAB PO SCH (09:25)
[2021-11-29] MEDS: FUROSEMIDE 20 MG TAB PO SCH (09:25)
[2021-11-29] MEDS: FLUoxetine 20 MG CAP PO SCH (09:25)
[2021-11-29] MEDS: SPIRONOLACTONE 12.5MG PER 1/2 TABLET PO SCH (09:25)
[2021-11-29] MEDS: SODIUM CHLORIDE NASAL 0.65% SPRAY BTL (OCEAN) SCH (09:26)
[2021-11-29] MEDS: LORazepam 0.5 MG TAB PO PRN (09:40)
[2021-11-29] MEDS ORDERED: AMIO200T49 PO (10:45)
== END 2021-11-29 12:33 | disposition home or self-care (01) | DRG 281 ==
LOC: EDBD 14:07 → M ED 14:07 → M ED INP 17:38 → M PCU 18:35
PROVIDERS: ADMIT Family Medicine; ATTEND Family Medicine
DX: I48.0 Paroxysmal atrial fibrillation (principal); I21.A1 Myocardial infarction type 2; I50.32 Chronic diastolic (congestive) heart failure; I13.0 Hypertensive heart and chronic kidney disease with heart failure and stage 1 through stage 4 chronic kidney disease, or unspecified chronic kidney disease; E78.5 Hyperlipidemia, unspecified; F32.9 Major depressive disorder, single episode, unspecified; D50.9 Iron deficiency anemia, unspecified; Z86.711 Personal history of pulmonary embolism; N18.30 Chronic kidney disease, stage 3 unspecified; Z79.899 Other long term (current) drug therapy; Z85.3 Personal history of malignant neoplasm of breast; I35.0 Nonrheumatic aortic (valve) stenosis; I27.20 Pulmonary hypertension, unspecified; M81.0 Age-related osteoporosis without current pathological fracture; K57.30 Diverticulosis of large intestine without perforation or abscess without bleeding; Z88.0 Allergy status to penicillin; M19.90 Unspecified osteoarthritis, unspecified site